=== PATIENT | male | born 1960 | race Caucasian/White ===

== ENCOUNTER 2023-06-03 07:58 | Outpatient (AMB) | payer OTHER, SELFPAY ==
--- NOTE | 2023-06-03 08:03 | MHC.OFFVIS ---
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 - LVM Intake Note: Pt presents to the office for a new pt evaluation for dizzy spells. He is here at the recommendation of his grain mill products inspector. He reports he had a full cardiac work up that was WNL. He states if he is in a resting position and gets up he feels light headed. They have been infrequent episodes, but enough to raise concern. Metallographer Required: No Allergies No Known Allergies Allergy (Verified 06/03/23 08:03) Medication List - Last Reconciled 06/03/23 by Dinorah Rodrigues MD docusate sodium (Colace) 100 mg PO DAILY famotidine 20 mg PO DAILY hydrocortisone 1% (Cortisone (hydrocortisone)) 1 appl topical BID PRN lorazepam 0.5 mg PO DAILY PRN midodrine 5 mg PO TID multivitamin 1 tab PO DAILY wheat dextrin (Benefiber Sugar Free (dextrin)) 1.5 grams PO TID HPI HPI Comments History of Present Illness Details 62y/o male comes for evaluation of possible parkinsons. He has been having episodes of lightheadedness, palpitations for past 3-4 years.It usually happens when he stands up from a sitting position and goes up the stairs or some sort of exertion. The episodes are infrequent - can have 4-5 times over 3 days in 1 month.He denies headaches with these episodes. He used to have frequent headaches in the past . When he has these episode she feels like he has to stop what he is doing or he will pass out. No epsiodes of passing out. He sees cardiology- had stress test, Holter, echo etc.He was started on Midodrine 5 mg tid 1 week ago by his grain mill products inspector. Patient is very active , is a triathlete . He is still able to exercise. He drinks 2 quarts of water,gatorade etc. He also has constipation - for many years. No loss of sense of smell. He has abnormal behavior in sleep- acting out his dreams.He has loud snoring. No drooling, feels his voice is hoarse. No double vision, no vertigo, no change in handwriting.No tremors , no gait issues. [facility] Medical History (Updated 06/03/23 @ 14:35 by Dinorah Rodrigues MD) Snoring Orthostatic hypotension Reflux esophagitis GERD (gastroesophageal reflux disease) Allergic rhinitis Surgical History (Updated 06/03/23 @ 08:05 by Cecilia Guadarrama CMA) S/P ligament repair Family History (Updated 06/03/23 @ 08:15 by Cecilia Guadarrama CMA) Father No problems noted. Mother No problems noted. Sister Intestinal adhesions Brother Anxiety Social History (Updated 06/03/23 @ 08:16 by Cecilia Guadarrama CMA) Household Members: Spouse Housing: House Alcohol intake: current Patient Tobacco Use Status: Never used Tobacco Physical Exam Vital Signs: Last Vital Signs Pulse 62 06/03/23 09:13 Resp 15 06/03/23 08:06 BP 110/82 06/03/23 09:13 Pulse Ox 97 06/03/23 08:06 Oxygen Delivery Method Room Air 06/03/23 08:06 BMI result Body Mass Index 29.4 Const General: cooperative, healthy appearing and comfortable Nutritional Appearance: average body habitus Orientation/consciousness: patient oriented x3 Eyes Pupils: Equal, round and reactive pupils present Neuro Other: Mild decreased facial expression and blink Mild hoarseness of voic e Left UE mild decreased FFM General: patient oriented x3, gait normal, tone normal and moves all extremities Cranial nerves: Yes Facial sensation intact/muscles of mastication intact, Yes Equal, round and reactive pupils present, Yes Bilaterally intact EOM present, Yes Nystagmus not present and Yes Normal facial strength present Cognition (Neuro): normal cognition Gait exam (Neuro): Normal gait present Deep tendon reflexes (DTR's): Right triceps reflex intensity grade: 1+, Left triceps reflex intensity grade: 1+, Rt Biceps (C5, C6): 1+, Left biceps reflex intensity grade: 1+, Right brachioradialis reflex intensity grade: 1+, Left brachioradialis reflex intensity grade: 1+, Right patellar reflex intensity grade: 1+ and Left patellar reflex intensity grade: 1+ Coordination: [id number] test normal Assessment & Plan Assessment & Plan (1) Orthostatic hypotension: Comment: h/o REM BEHVAIOR DISORDER , constipation ? MSA Code(s): I95.1 - Orthostatic hypotension Plan continue midodrine 5m tid Increase fluid intake Patient declined sleep study or MRI this time. Coding Level of Care Code New Pt Level 4 (34577) Diagnoses Orthostatic hypotension I95.1
[2023-06-03 08:06] VITALS: BP 118/78; PULSE 59; RESP 15; O2SAT 97; BMI 29.4
[2023-06-03 09:11] VITALS: PULSE 60
[2023-06-03 09:12] VITALS: BP 102/78; BP 106/82; PULSE 58; PULSE 62
[2023-06-03 09:13] VITALS: BP 106/80; BP 110/82; BP 110/84; PULSE 57; PULSE 58; PULSE 62
== END 2023-06-03 09:27 | disposition home or self-care (01) ==
PROVIDERS: PCP Nurse Practitioner Family; Visit Provider Psychiatry & Neurology Neurology
DX: I95.1 Orthostatic hypotension (principal)
CPT/HCPCS: 99204

== ENCOUNTER → 2023-06-03 07:58 | Outpatient (BNVA) | payer OTHER, SELFPAY | PROVIDERS: PCP Nurse Practitioner Family; Visit Provider Psychiatry & Neurology Neurology ==

== ENCOUNTER 2023-12-01 07:24 | Outpatient (AMB) | payer OTHER, SELFPAY ==
--- NOTE | 2023-12-01 07:28 | A.OFFVIS_ITS ---
Vital Signs 12/01/23 07:29 Height 5 ft 11 in Weight 211 lb 8 oz BMI 29.5 BP 112/68 Blood Pressure Location Rt brachial Position Sitting Respiration 16 Pulse 87 Pulse Source Pulse Oximeter Pulse Oximetry (%) 97 Oxygen Delivery Method Room Air Intake Visit Reasons: 6 mo f/u - Orthostatic Hyp TN/ Parkinson-CONF Intake Note: Pt presents tot he office for a 6 month follow up for orthostatic hypotension. 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 He stopped dairy, coffee which helped his irritable bowel. He describes an episode of losing some vision- he was staring at a lock pad with numbers and he could not see some numbers associated with headaches lasting 10 minutes.He has had 3 episodes so far. He has h/o migraines but have been stable for many years. The vision change lasts 10 minutes but headaches can linger for few hrs. He has been having episodes of lightheadedness, palpitations for past 3-4 years.It usually happens when he stands up from a sitting position and goes up the stairs or some sort of exertion. The episodes are infrequent - can have 4-5 times over 3 days in 1 month.He denies headaches with these episodes. He used to have frequent headaches in the past . When he has these episode she feels like he has to stop what he is doing or he will pass out. No episodes of passing out. He sees cardiology- had stress test, Holter, echo etc.He was started on Midodrine 5 mg tid 1 week ago by his telephone solicitor supervisor. Patient is very active , is a triathlete . He is still able to exercise. He drinks 2 quarts of water,gatorade etc. He also has constipation - for many years. No loss of sense of smell. He has abnormal behavior in sleep- acting out his dreams.He has loud snoring. No drooling, feels his voice is hoarse. No double vision, no vertigo, no change in handwriting.No tremors , no gait issues. [facility] Medical History (Updated 12/01/23 @ 08:00 by Dinorah Rodrigues MD) Migraine Snoring Orthostatic hypotension Reflux esophagitis GERD (gastroesophageal reflux disease) Allergic rhinitis Surgical History S/P ligament repair Family History Father No problems noted. Mother No problems noted. Sister Intestinal adhesions Brother Anxiety Social History Household Members: Spouse Housing: House Alcohol intake: current Patient Tobacco Use Status: Never used Tobacco Physical Exam Vital Signs: Last Vital Signs Pulse 87 12/01/23 07:29 Resp 16 12/01/23 07:29 BP 112/68 12/01/23 07:29 Pulse Ox 97 12/01/23 07:29 Oxygen Delivery Method Room Air 12/01/23 07:29 BMI result Body Mass Index 29.5 Const General: cooperative, healthy appearing and comfortable Nutritional Appearance: average body habitus Orientation/consciousness: patient oriented x3 Eyes Pupils: Equal, round and reactive pupils present Neuro Other: Mild decreased facial expression and blink Mild hoarseness of voic e Left UE mild decreased FFM General: patient oriented x3, gait normal, tone normal and moves all extremities Cranial nerves: Yes Facial sensation intact/muscles of mastication intact, Yes Equal, round and reactive pupils present, Yes Bilaterally intact EOM present, Yes Nystagmus not present and Yes Normal facial strength present Cognition (Neuro): normal cognition Gait exam (Neuro): Normal gait present Coordination: [id number] test normal Assessment & Plan Assessment & Plan (1) Orthostatic hypotension: Comment: h/o REM BEHVAIOR DISORDER , constipation ? MSA Code(s): I95.1 - Orthostatic hypotension Category: Medical (2) Migraine: Code(s): G43.909 - Migraine, unspecified, not intractable, without status migrainosus Category: Medical Qualifiers: Migraine type: migraine (< 15 days per month) with aura Intractability: not intractable Plan continue midodrine 5mg tid Increase fluid intake Patient declined sleep study, MRI this time. suggested magnesium 250-400 mg qhs Coding Level of Care Code Est Pt Level 4 (52796) Diagnoses Orthostatic hypotension I95.1 Migraine G43.909 Migraine type: migraine (< 15 days per month) with aura Intractability: not intractable
[2023-12-01 07:29] VITALS: BP 112/68; PULSE 87; RESP 16; O2SAT 97; BMI 29.5
== END 2023-12-01 08:04 | disposition home or self-care (01) ==
PROVIDERS: PCP Nurse Practitioner Family; Visit Provider Psychiatry & Neurology Neurology
DX: I95.1 Orthostatic hypotension (principal); G43.909 Migraine, unspecified, not intractable, without status migrainosus
CPT/HCPCS: 99214

== ENCOUNTER → 2023-12-01 07:24 | Outpatient (BNVA) | payer OTHER, SELFPAY | PROVIDERS: PCP Nurse Practitioner Family; Visit Provider Psychiatry & Neurology Neurology ==

== ENCOUNTER 2024-12-01 07:27 | Outpatient (AMB) | payer OTHER, SELFPAY ==
--- OUTSIDE RECORDS SUMMARY | 2024-12-01 07:30 | XMS_ITS | Data Portability ---
Author Organization [facility], [facility] Address [address] [place] [address] Care Team Providers Care Crib Attendant Name Role Phone DEMETRIUS HAAS Director Network Development [phone] BASIL MARTINEZ Digital Marketer KIERA PATEL Primary Care Provider Assessment Encounter Date Assessment Date Assessment LastModified by Organization Details LastModified Time 12/26/2023 12/26/2023 see if tx ak or biopsy [email or web address] 1 Not available 12/26/2023 16:11:03 02/05/2024 02/05/2024 RTC 1-2 yr CEE or prn [email or web address] Not available 02/05/2024 08:54:41 09/08/2024 09/08/2024 General Health Maintenance Active lifestyle with cycling, swimming, and running. Gluten-free diet for digestive comfort. Takes multivitamin with vitamin D. - Continue current exercise regimen and gluten-free diet. - Ensure adequate vitamin D intake through multivitamin. [email or web address] Not available 09/09/2024 08:05:16 Plan of Treatment Reminders Order Date Submit Date Provider Last Modified By Organization Details Last Modified Time Details Appointments LAB Follow -Up 2024 07:30A M [facility] Lab Not available Not available Not available Clarissa ss Visit 30 2024 09:00A M JOSE C ARELLANO-BC Not available Not available Not available Eileen hensiv e Eye Exam, 20 Min 2024 08:10A M Shaylee Haas, OD Not available Not available Not available Lab BMP, serum or plasma 2023 024 [facility], [address] [place] [address], [id number], 11/15/2024 16:03:28 biliru bin fracti ons panel, QN, serum or plasma 2023 024 [facility], [address] [place] [address], [id number], 11/15/2024 16:03:28 hepati c functi on panel, serum 2023 024 [facility], [address] [place] [address], [id number], 11/15/2024 16:03:28 HbA1c (hemog lobin A1c), blood 2023 024 [facility], [address] [place] [address], [id number], 11/15/2024 16:03:28 Referral physic al therap ist referr al 2024 025 [facility], [address], [place], [address], 09/09/2024 07:38:32 physic al therap ist referr al - right side sciati ca 2023 024 [facility], [address], [place], [address], 01/05/2024 15:35:10 Procedures None record ed. Surgeries None record ed. Imaging XR, lumbar spine 2024 025 [facility] ([facility]), [address], [place], [id number], 09/10/2024 08:48:10 Medication Orders cyclob enzapr ine 10 mg tablet 2024 025 [place] Myriam [address] ([facility] 827), [address] [place], [place], [id number], 09/08/2024 15:31:17 silden afil 50 mg tablet 2023 024 DANIA Miguel [id number] ([facility]), [address] , [place], [id number], 06/29/2024 16:42:56 Patient TargetsNo targets recorded. Patient Instructions Encounter Date Encounter Id Patient Instructions Last Modified By Organization Details Last Modified Time 12/26/2023 [id number] diet - low fodmap dchastains tul Not available 12/26/2023 15:51:45 learning about the low fodmap diet for irritable bowel syndrome (IBS) [email or web address] Not available 12/26/2023 15:51:45 01/02/2024 [id number] sciatica: exercises [email or web address] Not available 01/02/2024 16:52:51 Reason for Referral Physical Therapist Referral for Sciatica right side sciatica Referring Physician: Kiera Patel, Family Medicine, Encounter Date: 01/02/2024 Physical Therapist Referral for Low back pain LBP with paraspinal hypertonicity. Eval, assist with stretching for Low Back. Referring Physician: Antelmo Davis, Family Medicine, Encounter Date: 09/08/2024 Results Created Date Observation Date Name Description Value Unit Range Abnormal Flag Note LastModifiedBy Organization Detail LastModifiedTime 05/21/20 24 05/21/2024 trans -thor acic echoc ardio gram (TTE) (PROC ) No observ ation record ed. [email or web address] 1 [facility] [address], [place], [address], 05/21/2024 18:57:35 09/10/19 25 09/09/2024 XR, lumba r spine CLINIC AL HISTOR Y: Low back pain, right- sided. TECHNI QUE: AP, latera l and latera l spot views of the lumbar spine obtain ed. COMPAR WILBERT: None. FINDIN GS: Verteb ral body alignm ent is within physio logic limits . There is no signif icant degene rative change . There is a mild superi or endpla te compre ssion fractu re deform ity of L1. There is less than 50% loss of height . The sacroi liac joints are unrema rkable . IMPRES JACLYN: 1. No signif icant degene rative change . 2. Mild L1 compre ssion fractu re deform ity as above. Readin g Physic julia: Shruti Barker ms [facility]) [address] , [place], [address], 10/13/2024 11:08:33 Result Notes None recorded. Problems Name Problem SNOMED Code Status Onset Date Resolution Date Notes Provider Name and Address Organization Details Recorded Time Muscle, ligament and fascia disorders 679858350 Completed 01/05/2016 Kiera Randolph MD [address] [place] [address], [phone] , [facility] 6 16:30:31 Pain of hip region 49091780 Completed 01/05/2016 Kiera Randolph MD [address] [place] [address], [address] , [facility] 6 16:30:46 Headache 15581367 Completed 01/05/2016 Kiera Randolph MD [address] [place] [address], [address] , [facility] 6 16:30:40 Benign essential hypertensi on 9596551 Completed 201504/06/2018 Kiera Randolph MD [address] [place] [address], [address] , [facility] 8 09:17:04 Acid reflux 508707493 Active 2018 Not Available [facility] 3 12:05:31 Orthostati c hypotensio n 64661965 Active 2022 Not Available [facility] 3 12:05:31 Hemorrhoid s 94175831 Active 2022 Not Available [facility] 3 12:05:31 Compressio n fracture of lumbar spine 168340034 Active 2023September 2022 K[address] EDMONDS [address], [address] , [facility] 4 10:27:37 Dilatation of aorta 23506925 Active 2023 3.9cm oct 24 KIERA EDMONDS [address], [address] , [facility] 4 18:57:25 Sciatica 87495392 Active 2023 KIERA EDMONDS [address], [address] , [facility] 4 07:14:12 Actinic keratosis 840428804 Active 2023 KIERA EDMONDS [address], [address] , [facility] 4 17:28:42 Hyperbilir ubinemia 37488037 Active 2023 KIERA EDMONDS [address], [address] , [facility] 4 17:34:44 Presbyopia 12093103 Completed 200504/13/2012 Not Available [facility] 3 03:04:39 Precordial pain 28471188 Completed 200304/13/2012 Not Available [facility] 3 03:04:39 Disorder of bursa of shoulder region 33296949 Completed 200606/16/2013 Not Available [facility] 3 02:04:09 Palpitatio ns 22840179 Completed 200304/13/2012 Not Available [facility] 3 03:04:39 Temporoman dibular joint disorder 58941423 Completed 200204/26/2012 Not Available [facility] 3 03:04:39 Pain of shoulder region 08248700 Completed 200704/13/2012 Not Available [facility] 3 03:04:39 Astigmatis m 35389516 Completed 200504/13/2012 [facility] Available [facility] 3 03:04:39 Myopia 48892252 Completed 200504/13/2012 Not Available [facility] 3 03:04:39 Neck pain 62555766 Completed 200004/26/2012 Not Available [facility] 3 03:04:39 Plantar fasciitis 111834246 Completed 200204/13/2012 Not Available [facility] 3 03:04:39 Disorder of skin and/or subcutaneo us tissue 59964397 Completed 04/13/2012 Not Available [facility] 3 03:04:39 Cellulitis and abscess of toe 961949231 Completed 200604/13/2012 Not Available [facility] 3 03:04:39 Finding by method 928702947 Completed 200304/13/2012 Not Available [facility] 3 03:04:39 Breathing painful 67488702 Completed 200304/13/2012 Not Available [facility] 3 03:04:39 Common cold 66825821 Completed 200204/13/2012 Not Available [facility] 3 03:04:39 Knee pain Completed 04/13/2012 Not Available [facility] 3 03:04:39 Pain of joint 50483775 Completed 200004/13/2012 Not Available [facility] 3 03:04:39 Sprain of shoulder and upper arm Completed 200104/13/2012 Not Available [facility] 3 03:04:39 Allergic rhinitis caused by pollen 67090420 Active 2004 Not Available [facility] 3 12:05:30 Open wound of forearm 717348458 Completed 04/13/2012 Not Available [facility] 3 03:04:39 Chest pain 38465765 Completed 200304/13/2012 Not Available [facility] 3 03:04:39 Brachial neuritis 14729755 Completed 200706/16/2013 Not Available [facility] 3 02:03:14 Abnormal weight gain 878069290 Completed 200204/13/2012 Not Available [facility] 3 03:04:39 Acute maxillary sinusitis 59929044 Completed 200204/13/2012 Not Available [facility] 3 03:04:39 Low back pain 501820546 Active 2004 Not Available [facility] 3 12:05:31 Pain of wrist region 19314389 Completed 200004/13/2012 Not Available [facility] 3 03:04:39 Pain in limb 18569622 Completed 200304/13/2012 Not Available [facility] 3 03:04:39 Viral upper respirator y tract infection 644245392 Completed 199904/13/2012 Not Available [facility] 3 03:04:39 Problem Notes None recorded. Procedures Surgical History Date Name Laterality Status Provider Name and Address Organization Details Recorded Time 02/05/20 24 Refraction completed Shaylee Haas, OD [address] [place], [address], [facility] 02/05/2024 08:54:25 07/16/20 22 [address]: Therapeutic Exercise completed Cristal Benitez, PT [address] [place], [address], [facility] 07/16/2022 15:31:49 07/16/20 22 Treatment and Advice completed Cristal Benitez, PT [address] [place], [address], [facility] 07/16/2022 15:30:22 07/02/20 22 Physical Activity Counselling completed Cristal Benitez, PT [address] [place], [address], [facility] 07/02/2022 17:23:06 07/02/20 22 14092: PT Eval Low Complexity completed Cristal Benitez, PT [address] [place], [address], [facility] 07/02/2022 17:23:03 07/02/20 22 Treatment and Advice completed Cristal Benitez, PT [address] [place], [address], [facility] 07/02/2022 17:23:33 09/11/19 22 Shave Biopsy completed Chelly pacheco PA-C [address] [place], [address], [facility] 09/11/2021 09:32:14 06/14/20 21 Refraction completed Sarah Mckeon [facility] 06/08/2021 09:44:15 06/05/20 20 prevention-cardio vascular risk reduction counseling completed Shannon Sanders [facility] 06/05/2020 15:16:46 06/05/20 20 prevention-annual alcohol misuse screening completed Shannon Sanders [place] [facility] 06/05/2020 15:16:46 09/21/19 20 Refraction completed Elizabeth Beckman [facility] 09/16/2019 13:08:07 03/28/20 17 Visual field comprehensive completed Nasir Douglas, OD [address] [place], [address], [facility] 03/28/2017 10:22:36 06/28/20 15 Refraction completed Nasir Douglas, OD [address] [place], [address], [facility] 06/28/2015 08:30:06 04/06/20 13 Treatment and Advice completed Cristal Benitez, PT [address] [place], [address], [facility] 04/06/2013 08:04:46 03/11/20 13 Treatment and Advice completed Cristal Benitez, PT [address] [place], [address], [facility] 03/11/2013 10:31:57 11/05/19 12 Wound Care completed Sun Guillermo LPN [facility] 11/05/2011 11:45:56 02/01/20 11 Treatment and Advice completed Cristal Benitez, PT [address] [place], [address], [facility] 01/31/2011 07:34:45 01/11/20 11 Treatment and Advice completed Cristal Benitez, PT [address] [place], [address], [facility] 01/10/2011 08:22:12 12/28/19 11 Treatment and Advice completed Cristal Benitez, PT [address] [place], [address], [facility] 12/27/2010 08:24:11 12/19/19 11 Treatment and Advice completed Cristal Benitez, PT [address] [place], [address], [facility] 12/18/2010 09:07:10 02/21/20 10 Treatment and Advice completed Cristal Benitez, PT [address] [place], [address], [facility] 02/20/2010 08:02:39 01/31/20 10 Treatment and Advice completed Cristal Benitez, PT [address] [place], [address], [facility] 01/30/2010 08:32:52 01/24/20 10 Treatment and Advice completed Cristal Benitez, PT [address] [place], [address], [facility] 01/23/2010 07:28:07 01/16/20 10 Treatment and Advice completed Cristal Benitez, PT [address] [place], [address], [facility] 01/15/2010 08:09:25 01/07/20 09 Treatment and Advice completed Basil Vega, PT [address] [place], [address], [facility] 01/06/2009 09:04:00 12/08/19 09 Treatment and Advice completed Basil Vega, PT [address] [place], [address], [facility] 12/07/2008 08:05:35 Imaging Results Imaging Date Name Status LastModified by Organization Details LastModified Time 05/21/2024 trans-thoracic echocardiogram (TTE) (PROC) completed [email or web address] 1 [facility] [address], [place], [address], 05/21/2024 18:57:35 09/09/2024 XR, lumbar spine completed [facility] ([facility]) [address], [place], [address], 10/13/2024 11:08:33 Procedure Notes None recorded. Medical Equipment None Reported. Allergies Allergen ID Allergen Name Allergen Category Reaction Reaction Severity Criticality Documentation Date Start Date Code Code System Note Provider Name and Address Organization Details Recorded Time 149657 banana extract food,medi cation abdominal pain moderate Not available 05/19/2019 05209 9 RxNorm Nasima justice [facility] 9 08:22:12 538490 pineapple extract food abdominal pain moderate Not available 05/19/2019 10135 74 RxNorm Nasima justice [facility] 9 08:22:27 580286 apple extract food abdominal pain moderate Not available 05/19/2019 76672 65 RxNorm red apple s Nasima Scott [facility] 9 08:22:52 Medications Name Sig Start Date Stop Date Status Note LastModified by Organization Details LastModified Time amoxicill in 500 mg caps 12/29 completed Not Available Not Available Not Available cimetidin e 400 mg tabs Takes one QD 01/05/20 PP 01/04 completed Not Available Not Available Not Available ranitidin e hydrochlo ride 150 mg tabs 11/16 completed Ranitidi ne Recall, pt states not taking Not Available Not Available Not Available cyclobenz aprine 10 mg tablet Take 1 tablet 3 times a day by oral route as needed for 21 days. active Not Available Not Available No t Available sildenafi l 50 mg tablet Take 0.5 tablets every day by oral route as needed for 14 days. active Not Available Not Available No t Available cimetidin e 400 mg tablet TAKE 1 TABLET BY MOUTH TWICE DAILY 05/19 completed Not Available Not Available Not Available Keflex 500 mg capsule Take 1 capsule every 6 hours by oral route for 7 days. 01/13 completed Not Available Not Available Not Available midodrine 5 mg tablet One Tablet TID active Not Available Not Available No t Available Flonase 50 mcg/actua tion nasal spray,sarah pension [place] 1 spray twice a day by intranas al route. 2010 active Not Available Not Available Not Avai lable sulfameth oxazole 800 mg-trimet hoprim 160 mg tablet Take 1 tablet every 12 hours by oral route for 7 days. 02/24 completed Not Available Not Available Not Available amoxicill in 500 mg tablet 1 PO TID X 10D 2011 active Not Available Not Available Not Avai lable cyprohept adine 4 mg tablet 06/02 completed Not Available Not Available Not Available hydrocort isone 2.5 % topical cream with perineal applicato r 12/25 completed Not Available Not Available Not Available famotidin e 20 mg tablet Take 1 tablet every day by oral route as needed. active daily Not Available Not Available No t Available lorazepam 0.5 mg tablet Take 1-2 tablets (as needed for flying) active Not Available Not Available No t Available amitripty line 10 mg tablet 12/25 completed Not Available Not Available Not Available Proctofoa m HC 1 %-1 % 12/25 completed Not Available Not Available Not Available nystatin 100,000 unit/gram topical cream APPLY TO THE AFFECTED AREA(S) BY TOPICAL ROUTE 2 TIMES PER DAY 12/25 completed Stopped today 02/12/23 AAS Not Available Not Available Not Available ranitidin e 150 mg tablet TAKE 1 TABLET BY MOUTH TWICE DAILY 05/19 completed Not Available Not Available Not Available hyoscyami ne 0.125 mg sublingua l tablet 12/25 completed Not Available Not Available Not Available lidocaine 5 % topical patch APPLY 1 PATCH BY TOPICAL ROUTE ONCE DAILY (MAY WEAR UP TO 12HOURS. ) active Not using 06/29/24 PP Not Available Not Available Not Available docusate sodium 100 mg capsule TAKE 2 CAPSULES BY MOUTH EVERY DAY DIRECTED 2024 active Not Available Not Available Not Avai lable omeprazol e 20 mg capsule,d elayed release 1 cap BID 11/16 completed spoke with ptDarwin Tateitiyoko stafford Recall and states no longer taking omeprazo le Not Available Not Available Not Available mupirocin 2 % topical ointment APPLY A SMALL AMOUNT TO THE AFFECTED AREA BY TOPICAL ROUTE 3 TIMES PER DAY 02/24 completed Not Available Not Available Not Available Maxitrol 3.5 mg/mL-10, 000 unit/mL-0 .1% eye drops,sarah pension Instill 1 drop every 3 hours by ophthalm ic route. 2011 active Not Available Not Available Not Avai lable ketoconaz ole 2 % topical cream APPLY TO THE AFFECTED AREA(S) BY TOPICAL ROUTE ONCE DAILY 12/25 completed Not Available Not Available Not Available rosuvasta tin 5 mg tablet Take one daily active Not Available Not Available No t Available famotidin e 12/29 completed Not Available Not Available Not Available multivita min take one tab daily 11/22 completed Not Available Not Available Not Available omega-3 fatty acids-fis h oil 300 mg-1,000 mg capsule,d elayed release 11/22 completed Take 1.00 caps daily Not Available Not Available Not Available Probiotic 100 billion cell capsule Take 1 capsule every day by oral route for 30 days. 02/24 completed Not Available Not Available Not Available Shingrix (PF) 50 mcg/0.5 mL intramusc ular suspensio n, kit 08/28 completed Not Available Not Available Not Available Fluzone Quad (PF) 60 mcg (15 mcg x 4)/0.5 mL IM syringe PHARMACY ADMINIST ERED 08/28 completed Not Available Not Available Not Available Vitals Date Recorded Body height Body mass index (BMI) Body weight Heart rate Oxygen saturation Oxygen saturation in Arterial blood by Pulse oximetry Systolic blood pressure Diastolic blood pressure Provider Name and Address Organization Details Last Updated DateTime 4 179.07 cm 29.7 kg/m2 04360.4 g 59 /min 97 % 97 % 106 mm[Hg] 74 mm[Hg] JANET Cuba [facility] 4 15:39:25 Date Recorded Body height Body mass index (BMI) Body weight Heart rate Systolic blood pressure Diastolic blood pressure Provider Name and Address Organization Details Last Updated DateTime 4 179.07 cm 29.7 kg/m2 57852.4 g 56 /min 114 mm[Hg] 78 mm[Hg] Kiera Beyer, [facility] 4 16:33:52 Date Recorded Body height Body mass index (BMI) Body weight Heart rate Oxygen saturation Oxygen saturation in Arterial blood by Pulse oximetry Systolic blood pressure Diastolic blood pressure Provider Name and Address Organization Details Last Updated DateTime 4 179.07 cm 30 kg/m2 41724.5 8 g 56 /min 98 % 98 % 120 mm[Hg] 80 mm[Hg] [facility] 16:12:41 Date Recorded Body height Heart rate Oxygen saturation Oxygen saturation in Arterial blood by Pulse oximetry Systolic blood pressure Diastolic blood pressure Provider Name and Address Organization Details Last Updated DateTime 5 179.07 cm 70 /min 99 % 99 % 90 mm[Hg] 56 mm[Hg] [facility] 5 15:13:48 Social History Question Answer Notes LastModified by Organizat ion Details LastModified Time Tobacco Smoking Status Never Smoker Not Available [email or web address] 06/13/2011 04:53:18 Do You Have An Advance Directive? No [email or web address] Information not available 06/13/2011 What Is Your Level Of Alcohol Consumption? Occasional 1 Drink A Week Information not available 08/28/2021 Do You Wear A Helmet When Biking? Yes Information not available 09/09/2014 What Is Your Level Of Caffeine Consumption? Occasional Information not available 06/29/2024 How Much Tobacco Do You Chew? None [email or web address] Information not available 06/13/2011 Are You Currently Employed? Yes Information not available 12/18/2022 What Type Of Diet Are You Following? REGULAR Less Meat. No Dairy. Information not available 12/26/2023 Which Illicit Or Recreational Drugs Have You Used? No Information not available 01/05/2020 Do You Or Have You Ever Used E-cigarettes Or Vape? 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 No Information not available 12/18/2022 Are There Any Guns Present In Your Home? No [email or web address] Information not available 06/13/2011 Do You Use Insect Repellent Routinely? Yes Information not available 08/28/2021 Live Alone Or With Others? With Others Information not available 06/05/2020 CSRP - Narcotics No Information not available 09/09/2014 CSRP Contract Signed And Discussed No Information not available 09/09/2014 Patient Has Health Care Proxy Signed And In Chart No Has It Completed, Will Bring It 08/28/21MS [email or web address] Information not available 06/13/2011 CSRP - Stimulants No Information not available 09/09/2014 CSRP - Suboxone No Informati on not available 01/05/2016 Marital Status Information not available 06/13/2011 Mosquito Repellent Used Routinely Yes [email or web address] Information not available 06/13/2011 What Was The Date Of Your Most Recent Tobacco Screening? 09/08/2024 Information not available 09/08/2024 How Many Children Do You Have? 2 Daughters In College [email or web address] Information not available 04/26/2012 What Is Your Relationship Status? Information not available 12/26/2023 Do You Use Your Seat Belt Or Car Seat Routinely? Yes Information not available 08/28/2021 Seat Belts Used Routinely Yes [email or web address] Information not available 06/13/2011 Smoke Alarm In Home Yes [email or web address] Information not available 06/13/2011 Do You Have Smoke And Carbon Monoxide Detectors In Your Home? Yes Information not available 08/28/2021 Are You Passively Exposed To Smoke? No Information not available 08/28/2021 Do You Or Have You Ever Used Smokeless Tobacco? Never Used Smokeless Tobacco [email or web address] Information not available 12/30/2019 How Much Tobacco Do You Smoke? No Information not available 06/29/2015 General Stress Level Low Information not available 06/05/2020 Do You Use Any Illicit Or Recreational Drugs? No Information not available 08/28/2021 Do You Use Sunscreen Routinely? Yes [email or web address] Information not available 06/13/2011 How Many Years Have You Smoked Tobacco? 0 [email or web address] Information not available 06/27/2020 Do You Or Have You Ever Used Any Other Forms Of Tobacco Or Nicotine? No Information not available 08/28/2021 How Many Days In The Past Year Have You Consumed 5 Or More Drinks? 0 [email or web address] Information not available 08/28/2021 Sex: Male Functional Status Question Answer Note LastModified by Organizat ion Details LastModified Time What is your exercise level? Moderate daily run, bike, swim sometimes Information not available 12/18/2022 Mental Status None recorded. Family History Relationship Description Onset Age of this Age Resolved Age Notes LastModified by Organization Details LastModified Time Father Polyp of colon [email or web address] Not available 2012 19:55:09 Notes:father - d 79 pneumoni a; hx palpitations, on meds, prostate issues, colon polyps; mother - 96; well. Medical History No medical history recorded. Immunizations Vaccine Type Date Status Note Provider Nam e and Address Organization Details Recorded Time Influenza, split virus, trivalent, preservative 1 completed Not Available [facility]14[facility]2019 02:18:11 Td(adult) unspecified formulation 6 completed Not Available [facility] 06/12/2011 05:21:29 Influenza, split virus, trivalent, preservative 2 completed Not Available [facility] 08/14/2019 02:18:35 Influenza, split virus, trivalent, PF 3 completed Not Available [facility] 08/14/2019 02:18:57 Influenza, split virus, trivalent, preservative 0 completed Not Available [facility] 08/14/2019 02:35:38 Novel [id number] 0 completed Not Available [facility] 08/14/2019 02:33:03 Influenza, split virus, trivalent, PF 4 completed Not Available [facility] 08/14/2019 02:19:23 Td(adult) unspecified formulation 2 completed [facility] 15:09:17 Influenza, split virus, quadrivalent, PF 5 completed Not Available [facility] 08/14/2019 02:20:11 Influenza, split virus, quadrivalent, PF 7 completed Not Available [facility] 08/14/2019 02:22:06 Influenza, split virus, quadrivalent, PF 8 completed Not Available [facility] 08/14/2019 02:22:58 Influenza, split virus, quadrivalent, preservative 0 completed Not Available [facility] 05/18/2020 10:39:59 Td (adult), 2 Lf tetanus toxoid, preservative free, adsorbed 2 completed Ankita Velez [address], [address], [facility] 08/28/2021 11:22:16 zoster recombinant 0 completed Celia Woods MA null, [facility] 05/10/2024 09:03:21 COVID-19, mRNA, LNP-S, bivalent, PF, 50 mcg/0.5 mL or 25mcg/0.25 mL dose 3 completed Ankita Velez [address], [address], [facility] 12/18/2022 20:45:43 Influenza, split virus, trivalent, preservative 0 completed Not Available [facility] 08/14/2019 02:17:48 COVID-19, mRNA, LNP-S, PF, 30 mcg/0.3 mL dose 1 completed JANET Ann, [facility] 08/28/2021 11:00:55 COVID-19, mRNA, LNP-S, PF, 30 mcg/0.3 mL dose 1 completed JANET Ann, [facility] 08/28/2021 11:01:18 COVID-19, mRNA, LNP-S, PF, 30 mcg/0.3 mL dose 1 completed JANET Ann null, [facility] 08/28/2021 11:01:41 Influenza, split virus, quadrivalent, preservative 1 completed JANET Ann null, [facility] 08/28/2021 11:02:19 Influenza, split virus, quadrivalent, preservative 2 completed Eliza justice, [facility] 04/25/2022 09:24:01 COVID-19, mRNA, LNP-S, PF, 30 mcg/0.3 mL dose 2 completed Eliza justice, [facility] 06/03/2022 12:21:39 zoster recombinant 0 completed Kaley Aguilar RN null, [facility] 10/19/2022 11:12:19 zoster recombinant 0 completed Kaley Aguilar RN null, [facility] 10/19/2022 11:12:38 influenza, unspecified formulation 2 completed Kaley Aguilar RN null, [facility] 10/19/2022 11:13:35 COVID-19 mRNA, bivalent, original/Omicron BA.1, Non-US Vaccine (Spikevax Bivalent), Moderna 3 [facility] 15:47:20 influenza, unspecified formulation 3 [facility] 04/28/2023 15:47:37 Influenza, MDCK, trivalent, preservative 4 [facility] 05/10/2024 09:03:38 Past Encounters Encounter ID Performer Location Encounter Start Date Encounter Closed Date Diagnosis/Indication Diagnosis SNOMED-CT Code Diagnosis ICD10 Code Diagnosis Note [id number] BAIRON Fajardo , [facility], OFFICE [address] [place] [address] 07/23/2000 11:30:00 08/17/2008 02:02:29 [id number] [facility] , [address] [place] [address] 08/28/2000 09:00:00 08/17/2008 02:02:29 [id number] [facility] , [facility] [address] [place] [address] 08/28/2000 00:00:00 08/17/2008 02:02:29 [id number] Kiera Randolph MD , [facility], OFFICE [address] [place] [address] 08/28/2000 08:30:00 08/17/2008 02:02:29 [id number] Ed Crowder. , [facility], OFFICE [address] [place] [address] 04/06/2002 10:42:44 08/17/2008 02:02:29 [id number] Kiera Randolph MD , [facility], OFFICE [address] [place] [address] 10/22/2002 10:30:15 08/17/2008 02:02:29 [id number] Cristal juárez, PT Physical Therapy, [address] [address] 11/25/2002 08:14:45 08/17/2008 02:02:29 [id number] Cristal juárez, PT Physical Therapy, [address] [address] 6 12/03/2002 08:24:41 08/17/2008 02:02:29 [id number] Cristal juárez, PT Physical Therapy, [address] [address] 6 12/10/2002 08:34:11 08/17/2008 02:02:29 [id number] Cristal juárez, PT Physical Therapy, [address] [address] 12/14/2002 07:33:10 08/17/2008 02:02:29 [id number] Cristal juárez, PT Physical Therapy, [address] [address] 6 12/17/2002 09:05:40 08/17/2008 02:02:29 [id number] Cristal juárez, PT Physical Therapy, [address] [address] 12/23/2002 08:44:09 08/17/2008 02:02:29 [id number] MD SHARON Jean Baptiste, [facility], OFFICE [address] [place] [address] 12/21/2002 16:41:12 08/17/2008 02:02:29 [id number] Cristal ujárez, PT Physical Therapy, [address] [address] 12/29/2002 08:41:00 08/17/2008 02:02:29 [id number] [facility] - [address] [address] 12/29/2002 09:17:23 08/17/2008 02:02:29 [id number] Cristal juárez, PT Physical Therapy, [address] [address] 01/05/2003 08:09:54 08/17/2008 02:02:29 [id number] Kiera Randolph MD , [facility], [address]ICE [address] [place] [address] 02/03/2003 11:44:46 08/17/2008 02:02:29 [id number] Sierra Guallpa NP , [facility], [address] [place] [address] 07/26/2003 15:36:12 07/27/2003 08:20:49 [id number] Kiera Randolph MD , [facility], [address] [place] [address] 10/03/2003 15:55:24 10/04/2003 08:10:37 [id number] [facility] , [address] [address] 10/03/2003 16:45:17 10/03/2003 16:47:02 [id number] [facility] , [facility] [address] [place] [address] 10/03/2003 00:00:00 08/17/2008 02:02:29 [id number] Kiera Randolph MD , [facility], [address] [place] [address] 06/08/2004 14:22:09 06/11/2004 14:19:30 [id number] MD SHARON Jean Baptiste, [facility], [address] [place] [address] 07/24/2004 12:06:39 07/24/2004 17:19:37 [id number] BAIRON Fajardo , [facility], [address] [place] [address] 11/26/2004 15:34:07 11/27/2004 15:41:29 [id number] [facility] - [facility] [address] [place] [address] 04/10/2005 08:11:32 04/10/2005 08:11:38 [id number] Hosea Sanders MD , [facility], OFFICE [address] [place] [address] 04/23/2005 16:39:35 08/17/2008 02:02:29 [id number] MD SHARON Jean Baptiste, [facility], OFF[address] [place] [address] 01/06/2006 09:38:35 08/17/2008 02:02:29 [id number] Nohelia Greco, OD Eye Care, [facility] [address] [place] [address] 01/06/2006 08:49:28 08/17/2008 02:02:29 [id number] [facility] , [facility] [address] [place] [address] 01/06/2006 10:33:16 08/17/2008 02:02:29 [id number] [facility] , [facility], OFF[address] [place] [address] 06/03/2006 16:37:27 06/04/2006 08:14:47 [id number] FP TREATMENT NURSE [facility], [facility], [address] [place] [address] 06/05/2006 10:10:51 06/06/2006 09:02:50 [id number] UCHE Craroll, [facility], OFFICE [address] [place] [address] 04/10/2007 09:27:05 04/13/2007 16:13:55 [id number] UCHE Carroll, [facility], [address]ICE [address] [place] [address] 04/13/2007 10:31:08 04/17/2007 11:22:29 [id number] UCHE Carroll, [facility], [address] [place] [address] 6 04/21/2007 08:24:40 04/23/2007 11:22:17 [id number] MD SHARON Jean Baptiste, [facility], OFFICE [address] [place] [address] 07/15/2007 08:43:45 08/17/2008 02:02:29 [id number] Cristal juárez, PT Physical Therapy, [address] [address] 07/29/2007 07:29:11 07/29/2007 12:25:12 [id number] Cristal juárez, PT Physical Therapy, [address] [address] 08/05/2007 07:20:27 08/05/2007 14:07:39 [id number] Nohelia Greco, Eye Care, [address] [address] 6 10/02/2007 07:58:25 10/05/2007 11:58:48 [id number] [facility] - [facility] [address] [place] [address] 06/03/2008 15:09:38 06/03/2008 15:09:46 [id number] Kiera Randolph MD , [facility], OFFICE [address] [place] [address] 06/03/2008 13:49:34 08/17/2008 02:02:29 [id number] MD SHARON Jean Baptiste, [facility], OFF[address] [place] [address] 11/15/2008 16:26:28 11/17/2008 13:20:48 [id number] Basil Vega , PT Physical Therapy, [facility] [address] [place] [address] 11/23/2008 07:27:59 11/24/2008 07:57:00 [id number] Basil Vega , PT Physical Therapy, [address] [address] 12/07/2008 07:30:10 12/07/2008 12:16:15 [id number] Basil Vega PT Physical Therapy, [address] [address] 01/06/2009 08:29:09 01/06/2009 15:13:49 [id number] Basil Vega , PT Physical Therapy, [address] [address] 02/08/2009 07:56:16 02/08/2009 11:13:51 [id number] Basil Vega , PT Physical Therapy, [address] [address] 03/03/2009 07:35:44 03/03/2009 11:28:24 [id number] [facility], [address] [address] 05/17/2009 07:59:33 05/17/2009 11:15:53 [id number] [facility], [address] [address] 05/22/2009 10:59:30 05/22/2009 11:29:01 [id number] [facility] FP, [facility], OFFICE [address] [place] [address] 08/08/2009 08:31:35 08/08/2009 15:23:26 [id number] Kiera Randolph MD , [facility], OFFICE [address] [place] [address] 01/10/2010 10:42:59 02/06/2010 12:39:43 [id number] Cristal juárez, PT Physical Therapy, [address] [address] 01/15/2010 07:25:33 01/15/2010 10:05:23 [id number] Cristal juárez, PT Physical Therapy, [address] [address] 01/23/2010 07:26:33 01/23/2010 09:37:09 [id number] Cristal juárez, PT Physical Therapy, [address] [address] 6 01/30/2010 07:50:15 01/30/2010 08:45:06 [id number] Cristal juárez, PT Physical Therapy, [address] [address] 6 02/20/2010 07:24:26 02/20/2010 08:41:30 [id number] Cristal juárez, PT Physical Therapy, [address] [address] 6 03/19/2010 07:31:55 03/19/2010 13:43:20 [id number] UCHE De La Cruz, [facility], OFFICE [address] [place] [address] 05/18/2010 14:31:07 05/21/2010 10:36:46 [id number] MD SHARON Jean Baptiste, [facility], OFFICE [address] [place] [address] 12/12/2010 09:32:29 12/14/2010 08:59:18 [id number] Cristal juárez, PT Physical Therapy, [address] [address] 12/18/2010 08:22:48 12/18/2010 10:18:48 [id number] Cristal juárez, PT Physical Therapy, [address] [address] 6 12/27/2010 07:47:28 12/27/2010 10:10:23 [id number] Cristal juárez, PT Physical Therapy, [address] [address] 6 01/10/2011 07:24:25 01/10/2011 08:25:13 [id number] Cristal juárez, PT Physical Therapy, [address] [address] 6 01/31/2011 07:04:17 01/31/2011 07:46:09 [id number] Cristal juárez, PT Physical Therapy, [address] [address] 6 02/21/2011 07:04:51 02/21/2011 09:01:50 [id number] UCHE De La Cruz, [facility], OFFICE [address] [place] [address] 03/27/2011 08:20:50 03/27/2011 09:24:35 [id number] SHARON TREATMENT NURSE [facility] SHARON [facility], OFFICE [address] [place] [address] 03/28/2011 09:37:51 03/28/2011 10:24:00 [id number] DENA Shirley [facility], OFFICE [address] [place] [address] 6 07/05/2011 10:14:28 07/05/2011 11:36:03 [id number] [facility] Techn[facility] st Radiology , [facility] [address] [place] [address] 6 07/05/2011 11:27:33 07/10/2011 10:11:59 [id number] Kevon Vergara MD , [facility], [address] [place] [address] 08/12/2011 07:54:09 08/12/2011 08:20:47 [id number] Antelmo Escobedo MD , [facility], [address] [place] [address] 08/16/2011 16:17:04 08/20/2011 10:47:04 [id number] JOSE C Torres-BC , [facility], [address] [place] [address] 11/05/2011 10:19:56 11/05/2011 11:33:23 [id number] JOSE C Torres-BC , [facility], [address] [place] [address] 11/06/2011 10:59:14 11/06/2011 11:39:53 [id number] JOSE C Torres-BC , [facility], [address] [place] [address] 11/13/2011 08:02:13 11/13/2011 08:28:43 [id number] Sierra De Santiago MD , [facility], [address] [place] [address] 02/17/2012 13:40:01 02/17/2012 14:10:59 [id number] Kiera Randolph MD , [facility], OFFICE [address] [place] [address] 04/13/2012 14:38:28 04/13/2012 15:36:48 [id number] Kiera Randolph MD , [facility], OFFICE [address] [place] [address] 6 07/23/2012 16:22:46 07/24/2012 12:16:16 [id number] Nasir Calderon MD Radiology , [facility] [address] [place] [address] 6 07/23/2012 17:06:58 07/23/2012 17:25:53 [id number] Kiera Randolph MD FP, [facility], OFFICE [address] [place] [address] 03/03/2013 16:49:42 03/03/2013 17:28:36 [id number] Cristal juárez, PT Physical Therapy, [address] [address] 03/11/2013 09:43:45 03/11/2013 11:23:32 Muscle, ligament and fascia disorders [id number] Cristal juárez, PT Physical Therapy, [address] [address] 04/06/2013 07:25:41 04/06/2013 09:16:55 Low back pain [id number] Cristal juárez, PT Physical Therapy, [address] [address] 04/13/2013 08:54:29 04/13/2013 10:06:22 Low back pain [id number] Kalpana Hubbard NP , [facility], OFFICE [address] [place] [address] 04/13/2013 09:36:52 04/16/2013 10:25:18 Influenza vaccine needed [id number] Cristal juárez, PT Physical Therapy, [address] [address] 04/19/2013 07:57:08 04/19/2013 09:51:11 Low back pain [id number] Cristal juárez, PT Physical Therapy, [address] [address] 6 04/29/2013 07:07:17 04/29/2013 09:12:01 Low back pain 343838035 [id number] Cristal juárez, PT Physical Therapy, [address] [address] 6 05/06/2013 07:28:53 05/06/2013 09:20:00 Low back pain [id number] Cristal juráez, PT Physical Therapy, [address] [address] 6 05/20/2013 07:04:02 05/20/2013 09:47:52 Low back pain [id number] Cristal juárez, PT Physical Therapy, [facility] [address] [place] [address] 05/25/2013 07:30:28 05/25/2013 07:48:57 Low back pain [id number] Cristal juárez, PT Physical Therapy, [address] [address] 6 05/27/2013 07:07:22 05/27/2013 07:47:38 Low back pain [id number] Cristal juárez, PT Physical Therapy, [address] [address] 6 06/01/2013 07:25:26 06/01/2013 09:47:15 Low back pain [id number] Kiera Randolph MD , [facility], OFF[address] [place] [address] 07/01/2013 11:46:41 07/01/2013 13:09:39 Pain of hip region 69180218 [id number] Kalpana Hubbard NP , [facility], [address] [place] [address] 6 07/02/2014 11:43:55 07/02/2014 11:48:38 Influenza vaccine needed [id number] Kiera Randolph MD , [facility], [address] [place] [address] 09/09/2014 13:39:17 09/09/2014 14:15:23 Sprain of jaw 08131287 Strain of gastrocnemius tendon 463462583 [id number] BAIORN Dominguez , [facility], [address] [place] [address] 02/11/2015 10:14:19 02/11/2015 11:03:59 Pruritus ani 99441866 Rash of genitalia 603592352 fungal- clotriamzo le 3x/day- f/u if not resolving I coming week [id number] Kiera Randolph MD , [facility], [address] [place] [address] 02/20/2015 16:36:39 02/20/2015 17:16:48 Infection of sebaceous cyst 567535598 [id number] Nasir Douglas, [facility], [facility] [address] [place] [address] 06/28/2015 07:47:54 06/28/2015 08:32:24 Myopia 60953813 H52.13 Presbyopia 49026316 H52. 4 Headache 57789448 R51 Most likelynot eye related. Optic nerves appear flat and healthy [id number] Kalpana Hubbard NP , [facility], OFF[address] [place] [address] 06/28/2015 08:31:31 06/28/2015 09:30:35 Active or passive immunization 495772962 Z23 [id number] Kiera Randolph MD , [facility], OFF[address] [place] [address] 06/29/2015 16:35:35 06/29/2015 17:28:29 Neck pain 16207378 M54.2 [id number] Kiera Randolph MD , [facility], [address] [place] [address] 01/05/2016 15:56:55 01/08/2016 09:13:57 Adult health examination 994770701 Z00.00 see Risk Assessment and Lifestyle Change Counseling section above Counseling 942624057 Z71 .9 [id number] Kiera Randolph MD , [facility], [address] [place] [address] 6 11/22/2016 08:21:04 11/22/2016 14:19:47 Adult health examination 844701235 Z00.00 see Risk Assessment and Lifestyle Change Counseling section above Headache 47947442 R51 [id number] Nasir Douglas, OD Eye Care, [address] [address] 02/28/2017 14:18:17 02/28/2017 15:15:16 Posterior vitreous detachment 580932245 H43.811 Retina is intact 360 degrees [id number] Nasir Douglas, OD Eye Care, [facility] [address] [place] [address] 03/21/2017 08:01:34 03/21/2017 09:03:47 Vitreous floaters 75605554 H43.391 Retina intact 360 degrees Subjective visual disturbance 11978185 H53.10 OCT show normal macula in both eyes. No evidence of CSRWith history of headaches will get visual field to rule out neurologic al defect Central se bonnie chorioretinopathy 727414043 H35.711 Ruled out by OCT. [id number] Nasir Douglas, OD Eye Care, [facility] [address] [place] [address] 03/28/2017 09:49:36 03/28/2017 10:43:04 Myopia 63673696 H52.13 Visual disturbance 20226 001 H53.9 Normal visual box in each eye, normal fundus, normal MRI Presbyopia 46820143 H52. 4 [id number] Gerry Roblero MD , [facility], [address] [place] [address] 05/24/2017 11:27:03 05/24/2017 13:29:15 Active or passive immunization 371009666 Z23 [id number] Cruzito Freeman MD , [facility], [address] [place] [address] 06/02/2017 17:07:19 06/03/2017 08:37:45 Plantar heel pain 26392249 M79.672 medial aspect pain.persi stent, pending negative x-ray will refer to PT and podiatry. [id number] Kiera Randolph MD , [facility], [address] [place] [address] 06/23/2017 16:26:20 06/24/2017 07:47:37 Headache 16833079 R51 Chest pain 90711045 R07. 2 [id number] Basil Martinez DPM Podiatry, [address] [address] 06/25/2017 08:59:25 06/27/2017 08:03:25 Plantar fasciitis 482580430 M72.2 [id number] Basil Martinez DPM Podiatry, [address] [address] 07/17/2017 11:08:16 07/18/2017 11:03:20 Plantar fasciitis 666596149 M72.2 [id number] Basil Martinez DPM Podiatry, [address] [address] 6 09/03/2017 09:07:32 09/03/2017 09:34:03 Plantar fasciitis 342963927 M72.2 [id number] Basil Mratinez DPM Podiatry, [facility] [address] [place] [address] 10/02/2017 14:48:50 10/02/2017 15:12:25 Plantar fasciitis 116322787 M72.2 [id number] Kiera Randolph MD , [facility], [address] [place] [address] 04/06/2018 08:53:56 04/06/2018 09:46:51 Adult health examination 455406566 Z00.00 see Risk Assessment and Lifestyle Change Counseling section above Counseling 496864874 Z71 .9 Depression screening 171 565008 Z13.89 depression screening tool administer ed, entered into emr, scored and discussed, time greater than 7.5 minutes Active or passive immunization 306083994 Z23 Epidermoid cyst of skin 147638888 L72.0 [id number] Basil Martinez DPM Podiatry, [facility] [address] [place] [address] 04/08/2018 09:12:16 04/21/2018 07:05:00 Plantar fasciitis 033738748 M72.2 [id number] Basil Martinez DPM Podiatr, [facility] [address] [place] [address] 04/23/2018 08:51:45 04/28/2018 07:10:22 Pain in right foot 9260089175 [id number] M79.060 [id number] Issa Krishnamurthy MD , [facility], OFF[address] [place] [address] 07/26/2018 10:21:59 07/26/2018 10:47:51 Abdominal pain 18216592 R10.9 [id number] JOSE C Nogueira , [facility], [address] [place] [address] 05/19/2019 08:13:31 05/19/2019 09:06:54 Adult health examination 222365849 Z00.00 Last colonoscop y 2010, normal. Due to repeat in 2020. Counseling 715762033 Z71 .9 Depression screening 171 853689 Z13.89 depression screening tool administer ed, entered into emr, scored and discussed, time greater than 7.5 minutes Active or passive immunization 568839218 Z23 Epidermoid cyst of skin 719743505 L72.3 1 cm sebaceous cyst left mandibular area. Referral to Dr. Clemons for removal. Acid reflux 526568971 K2 1.9 Currently taking Omeprazole 20 mg BID. Discussed risk/benef it of oysterman PPI use and starting slow taper (dropping 1 day or 1/2 day per week, replacing with Famotidine ) if tolerating decrease. Will f/u in 4 mos. [id number] Shaylee Haas, [facility], [facility] [address] [place] [address] 09/21/2019 08:03:56 09/21/2019 09:05:37 Myopia 98506048 H52.13 Meibomian gland dysfunction 628183650 H02.882 pt ed. recommend hot compresses with lid massage 1-2 x per day and Artificial tears 2-4 x per day. Posterior vitreous detachment 533441642 H43.811 longstandi ng, stable. RTC GOLDY if increase in floaters, flashes or any loss of vision. [id number] JOSE C Nogueira , [facility], [address] [place] [address] 12/30/2019 12:17:05 12/31/2019 11:31:04 Infection of skin 632336152 L08.9 Suspect skin on R medial nail fold. Will treat with Keflex 500 mg 1 capsule 4 times per day x 7 days. Advised daily probiotic at least 1 hour apart from abx and soaking finger in warm epsom salt bath 2-4 times per day. Keep area clean and dry and f/u if sxs worsen or persist. [id number] Elizabeth Morillo DO , [facility], [address] [place] [address] 12/31/2019 11:28:36 01/07/2020 15:54:33 Paronychia of finger [id number] L03.019 Pt advised to continue antibiotic s as prescribed yesterday which may need more time- he does have reduced pain which is a sign of some improvemen t. Advised to continue salt water soaks daily and aleve for pain. Pt counseled on possibilit y of lancing the infection if he does not see improvemen t/has worsening of symptoms over the next day or so, and may think of calling urgent care to see if that would be possible to come in for. Pt agrees with plan. [id number] Gerry Roblero MD , [facility], [address] [place] [address] 01/05/2020 08:53:07 01/07/2020 11:30:07 Paronychia of finger [id number] L03.019 the area is still red and tender, the skin is open in areaswill try topical txno systemic s/sx infectiont o soak three times a day then dry and use mupriocin for one week with f/u appt next weekcomple te current course of abx Indigestion [id number] K3 0 shoulder pain on right, some radiation to back, relieved positional lysuspect from indigestio n on abxwill complete coursesimp le diet next two dayscontin ue probioticc all if worse or new sxincrease famotidine to twice a day next two days Acid reflux [id number] K2 1.9 reports not sx with famotidine once a dayalso watches dietfeels he hasn't had indiscreti ons in diet but abx might be exacerbati ng GI sx [id number] Hosea Sanders MD , [facility], [address] [place] [address] 01/14/2020 10:27:23 01/18/2020 11:15:47 Paronychia of finger 170355049 L03.019 Recommend in person visit. TRied Santa yu but they cannot see him today. Will see Ed Woodard in house, discussed case with her [id number] Cruzito Freeman MD , [facility], [address] [place] [address] 01/14/2020 14:22:37 01/18/2020 09:17:48 Paronychia of finger 232312266 L03.019 Appears improved based on history and from recent pictures pt showed me on iphone. Pt has been treated with Keflex, Bactrim, and Bactroban. The erythema is improved and localized and there is no acute fluctuance /bogginess to indicate an abscess. Advised sometimes there may be residual discolorat ion for some time after the infection, but right now I& D is not indicated. Please cont to soak and can apply Bactroban. RTO in 1 week for in person reevaluati on or sooner if needed. Pt understand s and agrees with the plan. [id number] Hosea Sanders MD , [facility], [address] [place] [address] 02/25/2020 07:42:13 02/28/2020 13:54:42 Suspected COVID-19 640509036 Z03.818 covid testing with fatigue, headache and sl chest tightness Active or passive immunization 637971135 Z23 Fatigue 67450301 R53.83 keep diary of temp, symptoms- discussed treating allergies- and if not resolved- question lyme dx [id number] JOSE C Nogueira , [facility], [address] [place] [address] 03/01/2020 09:07:44 03/02/2020 13:46:31 Suspected COVID-19 778576370 Z03.818 Persisting COVID-like sxs since 02/17. Tested negative for COVID on 02/27. Endorsing CURRIE, aches, difficulty taking deep breath, runny nose, sore throat, and occasional cough.Chase es SOB or fever. Discussed high false negative rate of COVID test. Advised patient to continue isolation/ precaution s until 3 days of improved sxs and 3 days of no fever. Advised supportive therapy - tylenol, ibuprofen, adequate hydration, rest, nutrition. Continue daily antihistam ine (in case of allergies) . Discussed lyme vs COVID. Suspect COVID more than lyme d/t respirator y sxs which would not be present with lyme. Encouraged patient to f/u if sxs worsen or change. Patient agreed to plan. [id number] Joana Preciado MD , [facility], [address] [place] [address] 06/05/2020 15:07:26 06/07/2020 16:03:21 Adult health examination 138922268 Z00.00 Last colonoscop y 2010, normal. Due to repeat in 2020.UTD on flu vaccine.Du e now for second Shingrex vaccine. Counseling 641087149 Z71 .9 including cardiovasc ular risk reduction counseling Depression screening 171 971732 Z13.89 depression screening tool administer ed, entered into emr, scored and discussed, time greater than 7.5 minutes Screening for alcohol abuse 660704247 Z13.39 negative Acid reflux 152147047 K2 1.9 Currently taking Famotidine 20 mg BID. Well managed. Allergic r hinitis caused by pollen 39465589 J30.1 Claritin as needed. Lightheadedness 60977508 8 R42 New onset. Exertional . Last for less than 1 minute. Endorses racing heart w/ sxs. Denies chest/arm pain on exertion, SOB, weakness or numbness. Father dx at age 60 with cardiac arrythmia which required med. management . Pt. case to medical receptionist to schedule in house visit for lab work, vitals, and EKG. Patient case to nursing to set pt. up with 30 day monitor. Order sent to [facility] for exercise stress test. Advised pt. to seek urgent care if sxs worsen or occur with SOB, weakness, numbness, or chest pain. Pt. agreed to plan. Low back pain 265671416 M54.5 Improved with nigerien-chi/s trength training. [id number] Candy Mckeon MD , [facility], [address] [place] [address] 06/07/2020 08:31:07 06/08/2020 16:11:06 Lightheadedness 310811837 R42 Seen for in person f/u today after reporting new onset exertional lightheade dness and pounding heartbeat/ rushing to head.EKG NSR (signed by DANTE)Cardiac , lung & neuro exam WNLPositiv e orthostati cs: 127/80 (seated) -> 98/78 (standing) . Pt provided with instructio asuncion on managing.C onfirmed with nursing that holter monitor will be sent to pt's home for 30 days - pt aware.Conf irmed with pt that he is scheduled for stress test with [facility] Cardio, as set up by HAIDER.Reviewelizabeth d red flags and when to seek ED. Peter states understand ing. [id number] Shaylee Haas OD Eye [facility], [facility] [address] [place] [address] 06/14/2021 16:28:04 06/14/2021 17:28:27 Myopia 20119513 H52.13 Meibomian gland dysfunction 986899568 H02.882 pt ed. recommend hot compresses with lid massage 1-2 x per day and Artificial tears 2-4 x per day. Posterior vitreous detachment 124527821 H43.811 longstandi ng, stable. RTC GOLDY if increase in floaters, flashes or any loss of vision. [id number] MD SHARON Arambula, [facility], [address] [place] [address] 08/28/2021 10:43:32 08/30/2021 12:22:20 Adult health examination 869862584 Z00.00 Last colonoscop y 2010, normal. Due now - referral sent today.UTD on flu vaccine.De nies urinary sxs - negative screen for prostate CA Counseling 458060836 Z71 .9 including cardivascu lar risk reduction counseling . Depression screening 171 463748 Z13.31 depression screening tool administer ed, entered into emr, scored and discussed, time greater than 7.5 minutes Screening for alcohol abuse 039465874 Z13.39 negative Screening for malignant neoplasm of colon 163490493 Z12.11 Referral for a DIRECT booked colonoscop y. This patient is a healthy ASA Class 1 or 2 patient (only mild systemic disease), or a STABLE, well controlled insulin dependent diabetic. They do not have serious cardiac disease ie CA/angiopl asty within 1 year, symptomati c CHF; renal failure with CKD 4 or 5; take Coumadin, Plavix, Aggrenox, etc. Active or passive immunization 119960372 Z23 Allergy to food 03126124 1 T78.1XXA Suspected allergies to citrus - intense abdominal pain. Will continue to avoid. Will send referral to allergy. Diarrhea 74648341 R19.7 Diarrhea weekly, typically lasts 1/2-1 day. Family hx of colon CA. Referring for colonoscop y and to consult w/ GI. Skin lesion 70161160 L98 .9 Left hand. DK froze lesion off over 5 yrs ago but has returned as scab. Will return for biopsy. [id number] DO SHARON Herron, [facility], [address] [place] [address] 09/11/2021 08:56:00 09/13/2021 15:53:11 Neoplasm of uncertain behavior of skin of hand 78465813 D48.5 Shave biopsy performed/ LEFT dorsal handWound care instructio ns reviewed.K eep skin dry for 24 hrs, then routine showering ok. Do not soak or swim until full scab has formed. Monitor for signs of redness, pain or streaking which may indicated infection. F/U 10 d for skin check and path review [id number] Hosea Sanders MD , [facility], [address] [place] [address] 04/25/2022 08:25:44 05/01/2022 09:17:54 Pain of left calf 5339777874 615880 M79.662 Ongoing for over 1 mos. Suspect r/t overuse. Will order US and refer to sports medicine. He has met w/ PT before regarding this and is continuing his at home exercises. Advised ibuprofen 600-800 mg 3-4 times per day with food for max of 2 weeks, gentle stretching , Arnica ointment, heat/ice, and massage. Will f/u if sxs worsen. Hemorrhoids 26857422 K64 .9 He is considerin g surgery. Discussed witch belkys wipes, psyllium husk fiber, colace, sitz baths, steroid cream, limiting time on toilet. He has f/u visit w/ GI soon. UTD on colonoscop y. Swelling of lower leg 44 9445905 R22.40 Suspect r/t soft tissue injury and varicose veins. Discussed recommenda tion for elevation and compressio n stockings. He will meet w/ sports medicine. Discussed possibilit y of meeting w/ vein specialist in future as well. Acid reflux 847251421 K2 1.9 Currently taking Famotidine 20 mg daily down from BID. Well managed. Low back pain 933663732 M54.50 Much improved since starting PT. [id number] Gerg Lang MD Sports Medicine, [address] [address] 05/27/2022 09:55:45 05/27/2022 10:39:53 Strain of hamstring tendon 718700861 S76.312A Pain of le ft knee joint 5237442837 67522 M25.562 Betito is a 61-year-ol d male with left knee and calf pain that I believe is due to a tear of his distal semimembra nosus tendon. He has focal discomfort along his distal stem analysis tendon at the insertion of the posterior tibia. He does not have any pain over the pes bursa or evidence of a semitendin osus injury. The knee joint itself appears relatively benign without joint effusion or much joint line pain which I feel makes an internal derangemen t much less likely. I reviewed all this with him today as well as discussing treatment. I have advised conservati ve measures with physical therapy and he was given a referral. I advised he can continue with activities as tolerated which should avoid more intense activities or activities with rapid hamstring movement. I asked if x-rays done of the need to evaluate for any degenerati ve changes potentiall y causing some of his symptoms. He will plan to follow up with me in 10-12 weeks for reevaluati on. [id number] Candy Mckeon MD , [facility], [address] [place] [address] 06/05/2022 15:23:30 06/05/2022 16:44:46 Abdominal pain 66855866 R10.9 Suspicious for constipati on, will check abd. X-ray. X-ray showed Mod. amt of stool in colon Constipation 19430408 K5 9.00 Advised need to take a laxative until stool has cleared. Advised MOM or Miralax-ta ke until no longer passing stool. Increase fluids, fiber, If no results, needs to call back to office. [id number] Cristal juárez, PT Physical Therapy, [facility] [address] [place] [address] 07/02/2022 14:57:36 07/03/2022 23:49:11 Pain of left knee joint 2677738566 58115 M25.867 [id number] Cristal juárez, PT Physical Therapy, [facility] [address] [place] [address] 07/16/2022 15:01:03 07/16/2022 15:45:34 Pain of left knee joint 9162360270 41388 M25.946 [id number] Greg Lang MD Sports Medicine, [facility] [address] [place] [address] 07/30/2022 08:51:32 08/05/2022 21:21:09 Strain of hamstring tendon 726255500 S76.312A Pain of le ft knee joint 7070369602 01302 M25.562 Betito is a 61-year-ol d male with left knee pain that I believe is predominan tly due to a injury of his distal semimembra nosus tendon. This area of discomfort has improved considerab ly and he has returned to running in most activities with minimal symptoms. He is having some more global discomfort which he believes may be related to some mild degenerati ve changes not seen on his x-ray imaging. His exam today is reassuring without joint effusion or evidence of significan t instabilit y or mechanical symptoms. I reviewed all of this with him today as well as discussing further treatment. At this point I have advised continuing his physical therapy and gradually increasing his level of activity. He would like to be able to return to running as well as bike riding. He will plan to follow with me only as needed in the future if he has worsening symptoms. Betito enjoys triathlons and would like to be able to potentiall y bike up [employer] with his daughter later this year. 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 Has worked well in past and uses sparingly. Discussed in future trying non-benzo medication s such as Clonidine or Hydroxyzin e. We agreed to 14 tablets total. Orthostati c hypotension 50958556 I95.1 In care w/ cardiology who suspects this may be more autonomic rather than cardiac. Occurs only when sitting and then stands and goes up stairs. Able to run, cycle, swim without any issues. He has f/u w/ cardiology in 6 mos. Hemorrhoids 17999480 K64 .9 In care w/ GI who currently does not think surgery is warranted at the moment. He will continue with supportive measures: witch belkys wipes, psyllium husk fiber, colace, sitz baths, steroid cream, limiting time on toilet. [id number] Hosea Sanders MD FP, [facility], [address] [place] [address] 12/18/2022 10:51:22 12/18/2022 16:12:46 Adult health examination 326999201 Z00.00 Last colonoscop y 2021, normal, 10 yr recall.UTD on flu vaccine.De nies urinary sxs - negative screen for prostate CA Depression screening 171 539085 Z13.31 depression screening tool administer ed Screening for alcohol abuse 798566195 Z13.39 Alcohol use screening tool administer ed Screening for malignant neoplasm of prostate 876047245 Z12.5 PSA testing for ages 55-69 risks and benefits discussed {{patient declines testing te st ordered pa tient declines testing #}}. Fear of flying 509402574 F40.243 Fear of flying, requesting Lorazepem for flights. Has worked well in past and uses sparingly. Discussed in future trying non-benzo medication s such as Clonidine or Hydroxyzin e. We agreed to 14 tablets total at previous visit. Orthostati c hypotension 10091753 I95.1 In care w/ cardiology who would like patient to have work up for Addidon's Disease and consult w/ neurology to r/o autonomic disease such as Parkinson' s rather than cardiac etiology. Cardiology also recommends pushing electrolyt es and wearing compressio n stockings. Occurs only when sitting and then stands and goes up stairs. Able to run, cycle, swim without any issues. Has f/u w/ cardiology . Will order labs for Marin's and refer to Dr. Dinorah Dior, neurology. We will f/u in 3 mos. Onset of sxs prior to 2019 (COVID). Hemorrhoids 58149286 K64 .9 In care w/ GI who has done the first out of three banding procedures . He is tolerating them well. Swelling of lower leg 44 4117186 R22.40 Suspect r/t soft tissue injury and varicose veins. US last Fall normal and no worsening sxs since then, only improvemen ts since wearing compressio n stockings. left leg 1 cm > right leg today. Discussed recommenda tion for elevation and compressio n stockings. He will meet w/ sports medicine. Discussed possibilit y of meeting w/ vein specialist in future as well. Active or passive immunization 737418286 Z23 Acid reflux 377848294 K2 1.9 Currently taking Famotidine 20 mg daily down from BID. Well managed. [id number] Hosea Sanders MD , [facility], [address] [place] [address] 02/05/2023 15:43:10 02/05/2023 17:59:35 Candidiasis of skin 03695695 B37.2 Assessment and plan:Tinea cruris.Inf ormed the patient that his symptoms are due to a fungal infection called tinea cruris.Pre scribed nystatin cream and instructed him to apply a pea-sized amount to the affected area 2 times a day for 2 weeks.Reas sured the patient that the itching would get better in 3 to 4 days, and the rash will subsequent ly fade out completely .Encourage d him to ensure good air circulatio n to the affected area at nighttime. He can continue using the Gold Contreras powder to help dry the area. This note has been generated by Carly GARZON and edited by Christian Baker Quality Documentat ion Specialist /reviewed by Laurel cadet [id number] Joana Preciado MD , [facility], [address] [place] [address] 02/12/2023 17:06:56 02/12/2023 17:49:45 Tinea cruris 491855613 B35.6 Try new medication instead of nystatin. Can take 1-2 weeks to really see a difference [id number] Hosea Sanders MD , [facility], [address] [place] [address] 12/26/2023 15:23:59 12/29/2023 13:07:37 Adult health examination 556436535 Z00.00 Depression screening 171 352393 Z13.31 depression screening tool administer ed Screening for alcohol abuse 472425897 Z13.39 Alcohol use screening tool administer ed Screening for malignant neoplasm of prostate 675748400 Z12.5 If you have a prostate, the U.S. Preventive Services Task Force advises not to make a PSA test a part of the standard exam for ages 55-69. Instead they recommend the uncertaint ies about the test be discussed and ordered only if a patient still wants it. Over their lifetimes as many as 50% or more of persons with a prostate will develop prostate cancer but only 2% of them will of prostate cancer. For those who chose to be screened for prostate cancer, if 1000 are screened with a psa test over a 15 year period there might be 1-2 deaths prevented however 235 persons will have a biopsy with risk of infection, bleeding and pain, 100 will have their prostate removed by surgery or radiation treatments and 60-70 of those will suffer incontinen ce or impotence. There is also the risk of anesthesia or radiation complicati ons. For those over 70, prostate cancer screening offered no benefit and risked pain, worry, expense and possibly shorter life expectancy . Gastrointe stinal irritation 03962053 K63.89 Discussed FODMAP dietGiven info Follow up in 6 mos Multiple a ctinic keratoses 164954198 L57.0 Very apparent lesions are AKsWill offer cryo tx Epidermoid cyst of skin of back 251516097 L72.0 Initially thought to be blackhead but more consistent w epidermoid cystDiscus sed removal if bothersome [id number] Hosea Sanders MD , [facility], [address] [place] [address] 01/02/2024 16:25:06 01/05/2024 11:29:47 Sciatica 97762966 M54.31 Discussed conservati ve measures vs medication s and returning to PTSince sxs are slowly improving, we opted for conservati ve measures Do sciatica exercisesA void bike riding for a whileGo to PT for sciaticaIf not continuing to improve, consider medication [id number] Shaylee Haas, [facility], [address] [address] 02/05/2024 08:00:43 02/05/2024 09:23:50 Myopia 65016751 H52.13 Vitreous floaters 971044 02 H43.393 longstandi ng and stable. Observe. Ophthalmic examination and evaluation 18448652 Z01.01 [id number] Hosea Sanders MD , [facility], [address] [place] [address] 06/29/2024 16:00:36 06/29/2024 18:59:42 Dilatation of aorta 51871826 I77.819 dilation of aorta to 39mm Low back pain 669667986 M54.50 resolved Orthostati c hypotension 61610117 I95.1 doing wellocc sxs Abdominal discomfort 433 24616 R10.9 Intermitte nt lower abdominal discomfort , mild cramping, and increased gas after bowel movements. Stools are soft but sometimes difficult to pass. No diarrhea or blood in stool. Currently on docusate 200mg daily, EOD MiraLax, and Benefiber. -Continue current medication s.-Trial of gluten-sobia e diet and strict adherence to FODMAP diet recommende d.-If no improvemen t, consider referral to Gastroente rology.-Fo llow up in 6 mos. Erectile dysfunction 860 441126 F52.21 Hard to get and maintain erection Discussed hazards of sildenafil when he has orthostati c hypotensio nAdvised to be very careful with orthostati c changes for 5-8 hours after use Plans for infrequent use Discussed GoodRx Rx very small dose of sildenafil Follow up in 6 mos Actinic keratosis 402777 007 L57.0 HandsDiscu ssed tx options Return for cryo tx if desired Hyperbilirubinemia 47960 006 E80.6 total bili 1.1 in 2022 Diabetes m ellitus screening 952343848 Z13.1 [id number] ANTELMO DAVIS DO , [facility], [address] [place] [address] 09/08/2024 14:50:54 09/09/2024 09:30:29 Low back pain 314770303 M54.50 Chronic low back pain with paraspinal muscle spasms, no radicular symptoms. History of compressio n fracture. Differenti al includes muscle spasms and possible leg length discrepanc y. No cauda equina syndrome. Imaging considered to rule out new changes.- Order lumbar spine X-ray.- Refer to physical therapy for assessment and stretching exercises. - Prescribe muscle relaxant as needed, up to three times daily. Health Concerns Section Related Observation LastModified by Organization Detai ls LastModified Time None Recorded Concern Status LastModified by Organization Details LastModified Time None Recorded Advance Directives Directive N: Payers Encounter Date Sequence Insurance Name Policy Number Policy Ramos Covered Member ID Ramos Member ID Guarantor Name 12/26/2023 1 [facility] [id number] Betito Marrufo [id number] Betito Marrufo 01/02/2024 1 [facility] [id number] Betito Marrufo [id number] Betito Marrufo 02/05/2024 1 [facility] [id number] Betito Marrufo [id number] Betito Marrufo 06/29/2024 [facility] [id number] Betito Marrufo [id number] Betito Marrufo 09/08/2024 [facility] [id number] Betito Marrufo [id number] Betito Marrufo Notes Date Note Type Note Provider Name and Address Organization Details Recorded Time 4 text/html Risk Assessment AdultReported bypatient.Coronary Artery Disease Risk Assesment:No Family history of coronary artery disease; No personal history of diabetes; No history of peripheral vascular disease, AAA, or carotid disease; No personal history of coronary artery disease Breast Cancer Risk Assessment:No family history of breast cancer; No history of breast cancer or dcis Colon Cancer Risk:No personal history of colon cancer or polyps;Family history of colon polyps or canncer Lung Cancer Risk Assessment:Never smoked; No asbestos exposure Fracture Risk Assessment:No unexplained fracture Cognitive/Behavioral Risk Assessment:No personal history of mental illness; No family history of mental illness Safety Risk Assessment:No evidence of abuse/neglect Diet:Counseled about appropriate portion size; Counseled about eating a diet low in trans and saturated fats and high in fiber, fruits and vegetables; Counseled about appropriate calcium intake and good dietary sources of calcium.; Counseled about the importance of maintaining a positive calcium balance and taking 1000 iu Vitamin D daily.; Counseled about decreasing carbohydrates; Counseled about decreasing salt in diet; Discussed the value of a Mediterranean diet, and eating more fruits and vegetables Exercise counseling:Discussed the importance of daily physical activity; Discussed the importance of weight bearing exercise Counselling:Counseled about protecting skin from the sun and lowering the risk of skin cancer; Counseled about avoiding excessive and unsafe alcohol intake; Counseled about use of helmets for high velocity activiities; Counseled about use of seat beltsSocial DeterminantsReported bypatient.Living situationsteady place to live Pt presents for Wellness. GENERAL:Health changes: Hemorrhoids, neurologistExercise: A little less exercise than before. Stretching every morning. Swimming. Getting back to cycling.Diet: Trying more plant based diet. Little meat. Lots of eggs. Whole grains.Alcohol: RareDrugs: NoneSmoking: NeverSex: Sexually active in monogamous relationshipSafety: Safe at homeHearing: No concerns for hearing. Occasional scotoma. Follows w neuro. PREVENTIVEVax: UTDCRC: Negative in 2021. Ten year recall.STIs: No concernsHep C: Negative in 2017Pre DM: FBG 81Lipids: WNL in 3PSA: Declined Had L1 compression fx in Dr Anjum mayaBack pain improved Seeing neuro for orthostatic hypotension Pain after BMs after hemorrhoid bandingBMs in succesion t4Tnacwjieky has improvedFollows w GIContinues to have gut discomfort after BMsTaking fiber, MiralaxIntermittent constipation Has cut out dairy, coffee, some fruitsNo more diarrhea sessions after cutting out dairy KIERA Juárez, [facility] [address] [place], [address], [facility] 12/26/2023 18:41:27 4 text/html Pt c/o persistent Right hip pain. Had L1 compression fx in Dr Spencer pain improvedStill stiff in AMUsing massage gunAlternating standing and sittingDoing home PT exercises Soon after last week started having hip pain and some sharp burning pains in right legPain in sciatic distributionGetting better now in last 24 hoursTightness in the front and in back of right legLess power when propelling self when walkingSitting makes pain worse KIERA Juárez, [facility] [address] [place], [address], [facility] 01/02/2024 18:01:56 4 text/html c/o mild blurry vision at near only with very fine print on medicine bottle without glasses. he takes picture of it and zooms in to see it. reports good distance vision CC.c/o floater, Occasional floater x years, no new ones, no flashes.Takes glasses off for reading and computer. Doesnt like driving at night 2' glare, harder to see. Shaylee Haas, OD [address] [place], [phone], [facility] 02/05/2024 09:15:18 4 text/html Medical mgmt sciatica/back pain-lidocaine patch-hx L1 compression fx in 2022-sciatica visit in december-referred to PT last visit-Went to [facility]-Much improved orthostatic hypotension-follows w cards-last saw in march-was doing well w oh and pushing fluids, using midodrine-cards to do cac score- 9.5ish CAC score-dilation of aorta to 39mm-orthostasis typically when getting up from sitting reflux-tried FODMAP but not totally adherent-Dropped dairy-somewhat better-mild urgency after BM-discomfort at edjjgzkn-colvw-cbzznqqqfy nt cramping occasionally-discomfort primarily after BMs-no diarrhea-stools soft but but can be hard to get out-not pushing much-no burping-after BM flatulence-lots of grains and gluten-docusate, benefiber, miralax EOD-has cut out bananas, citrus erectile dysfunction-hard to get erections-maintaining also difficult-morning but not on demand-infrequent sex KIERA RODRIGUEZ-ANDREWS Juárez, JOSE [address], [phone], [facility] 06/29/2024 17:36:43 5 text/html Back pain 6 wks now. No known injury. Lower back. History of Present IllnessThe patient, with a history of a compression fracture from a bike fall a year ago, presents with two types of back pain. The first is located at the base of the spine on the right side, described as a 'sudden twitchy' pain, likened to sitting on a golf ball. This pain does not radiate down the leg. The second type of pain is muscular, extending from the base of the spine towards the shoulder blades, exacerbated by standing for prolonged periods such as when cooking or doing dishes. This pain is relieved by sitting. The patient denies any recent injury and has been managing the pain with ice and occasional Advil. He has been maintaining an active lifestyle with cycling, swimming, and running, but has stopped running due to the pain. The patient also reports tightness in the right hamstring. 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 He denies any changes in bowel or bladder habits. ANTELMO DAVIS, [address] [place], [phone], [facility] 09/09/2024 08:05:36
[2024-12-01 07:35] VITALS: BP 114/82; PULSE 70; O2SAT 98; BMI 29.6
--- NOTE | 2024-12-01 07:35 | MHC.OFFVIS ---
Vital Signs 12/01/24 07:35 Height 5 ft 11 in Weight 212 lb BMI 29.6 BP 114/82 Blood Pressure Location Rt brachial Position Sitting Pulse 70 Pulse Source Pulse Oximeter Pulse Oximetry (%) 98 Oxygen Delivery Method Room Air Intake Visit Reasons: Follow up Orthostatic HTN/Parkinson Intake Note: Patient presents for follow up orthostatic hypotension Allergies No Known Allergies Allergy (Verified 12/01/24 07:44) Medication List - Last Reconciled 12/01/24 by Dinorah Rodrigues MD docusate sodium (Colace) 100 mg PO DAILY famotidine 20 mg PO DAILY hydrocortisone 1% (Cortisone (hydrocortisone)) 1 appl topical BID PRN lorazepam 0.5 mg PO DAILY PRN midodrine 5 mg PO TID multivitamin 1 tab PO DAILY rosuvastatin 5 mg PO DAILY wheat dextrin (Benefiber Sugar Free (dextrin)) 1.5 grams PO TID HPI Comments Details: 64y/o male comes for follow up of possible parkinsons.He is stable. No episodes of passing out and mild infrequent episodes of dizziness. He is doing well on midodrine 5 mg tid. He stopped dairy, coffee which helped his irritable bowel. His vision is stable .He had 2 more episodes of transient vision loss.No migraines sicne lats visit He stopped gluten and that has helped significantly.He denies nay REM behavior disorder or vivid dreaming History from previous visit- He describes an episode of losing some vision- he was staring at a lock pad with numbers and he could not see some numbers associated with headaches lasting 10 minutes.He has had 3 episodes so far. He has h/o migraines but have been stable for many years. The vision change lasts 10 minutes but headaches can linger for few hrs. He has been having episodes of lightheadedness, palpitations for past 3-4 years.It usually happens when he stands up from a sitting position and goes up the stairs or some sort of exertion. The episodes are infrequent - can have 4-5 times over 3 days in 1 month.He denies headaches with these episodes. He used to have frequent headaches in the past . When he has these episode she feels like he has to stop what he is doing or he will pass out. No episodes of passing out. He sees cardiology- had stress test, Holter, echo etc.He was started on Midodrine 5 mg tid 1 week ago by his it infrastructure consultant. Patient is very active , is a triathlete . He is still able to exercise. He drinks 2 quarts of water,gatorade etc. He also has constipation - for many years. No loss of sense of smell. He has abnormal behavior in sleep- acting out his dreams.He has loud snoring. No drooling, feels his voice is hoarse. No double vision, no vertigo, no change in handwriting.No tremors , no gait issues. [facility] Medical History Migraine Snoring Orthostatic hypotension Reflux esophagitis GERD (gastroesophageal reflux disease) Allergic rhinitis Surgical History S/P ligament repair Family History Father No problems noted. Mother No problems noted. Sister Intestinal adhesions Brother Anxiety Social History Household Members: Spouse Housing: House Alcohol intake: current Patient Tobacco Use Status: Never used Tobacco Physical Exam Vital Signs: Last Vital Signs Pulse 70 12/01/24 07:35 BP 114/82 12/01/24 07:35 Pulse Ox 98 12/01/24 07:35 Oxygen Delivery Method Room Air 12/01/24 07:35 BMI result Body Mass Index 29.6 Const General: cooperative, healthy appearing and comfortable Nutritional Appearance: average body habitus Orientation/consciousness: patient oriented x3 Eyes Pupils: Equal, round and reactive pupils present Neuro Other: Mild decreased facial expression and blink Mild hoarseness of voic e Left UE mild decreased FFM General: patient oriented x3, gait normal, tone normal and moves all extremities Cranial nerves: Yes Facial sensation intact/muscles of mastication intact, Yes Equal, round and reactive pupils present, Yes Bilaterally intact EOM present, Yes Nystagmus not present and Yes Normal facial strength present Cognition (Neuro): normal cognition Gait exam (Neuro): Normal gait present Coordination: fczhaq-xx-ibkj test normal Assessment & Plan Assessment & Plan (1) Orthostatic hypotension: Comment: h/o REM BEHVAIOR DISORDER , constipation ? MSA Code(s): I95.1 - Orthostatic hypotension Category: Medical (2) Migraine: Code(s): G43.909 - Migraine, unspecified, not intractable, without status migrainosus Category: Medical Qualifiers: Migraine type: migraine (< 15 days per month) with aura Intractability: not intractable Plan continue midodrine 5mg tid Increase fluid intake Carotid doppler to evaluate transient vision loss Home sleep test to r/o sleep apnea. suggested magnesium 250-400 mg qhs Orders: Orders US carotid duplex BI Today H53.129 - Transient visual loss, unspecified eye RT home sleep study Today G43.909 - Migraine, unspecified, not intractable, without status migrainosus, R06.83 - Snoring Coding Level of Care Code Est Pt Level 4 (86478) Complex EM visit Add On G2211 Diagnoses Orthostatic hypotension I95.1 Migraine G43.909 Migraine type: migraine (< 15 days per month) with aura Intractability: not intractable
== END 2024-12-01 08:01 | disposition home or self-care (01) ==
LOC: HO.HSMS 07:28
PROVIDERS: PCP Registered Nurse; Visit Provider Psychiatry & Neurology Neurology
DX: I95.1 Orthostatic hypotension (principal); G43.909 Migraine, unspecified, not intractable, without status migrainosus
CPT/HCPCS: 99214

== ENCOUNTER → 2024-12-01 07:27 | Outpatient (BNVA) | payer OTHER, SELFPAY | PROVIDERS: PCP Registered Nurse; Visit Provider Psychiatry & Neurology Neurology | DX: I95.1 Orthostatic hypotension (principal); G43.909 Migraine, unspecified, not intractable, without status migrainosus ==

== ENCOUNTER → 2025-02-17 15:03 | Outpatient (REF) | payer BC, SELFPAY ==
--- OUTSIDE RECORDS SUMMARY | 2025-02-17 15:07 | XMS_ITS | Encounter Summary ---
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 Name Role Phone Ankita Velez MILDRED Primary Care Provider Hosea Sanders MD Primary Care Provider [phone] Hosea Sanders MD Primary Care Provider [phone] Hosea Sanders MD Primary Care Provider [phone] Encounter Details Date Type Department Care Team (Late st Contact Info) Description 06/26/2020 Transcribe Orders [facility] [address] [place] [address] Tri Armas, MAGICIAN/ILLUSIONIST [address] [place], [place] [id number] Social History Tobacco Use Types Packs/Day Years Used Date Smoking Tobacco: Never Smokeless Tobacco: Never Alcohol Use Standard Drinks/Week Comments Yes 1 (1 standard drink = 0.6 oz pur e alcohol) Sex and Gender Information Value Date Recorded Sex Assigned at Male 01/05/2020 5:02 PM EDT Legal Sex Male 9:47 PM EDT Gender Identity Male 01/05/2020 5:02 PM EDT Sexual Orientation Not on file documented as of this encounter Plan of Treatment Upcoming Encounters Date Type Department Care Team (Late st Contact Info) Description 04/19/2025 7:30 AM EDT Office Visit [facility] [address] [place] [address] [address] Floor, [address] [place] [address] Velvet Keller, DNP [address], [address] [place] [address] [email or web address] documented as of this encounter Visit Diagnoses Not on filedocumented in this encounter Care Teams Batch Plant Operator Relationship Specialty Start Date End Date [place] MIL[place] Johnson [address] [place] [phone] [email or web address] PCP - General Family Medicine 01/05/20 06/27/20 Hosea Sanders MD [address] [place] [phone] [email or web address] PCP - General Family Medicine 06/28/20 09/11/21 Hosea Sanders MD [address] [place] [phone] [email or web address] PCP - General Family Medicine 09/12/21 09/27/23 Hosea Sanders MD [address] [place] [phone] [email or web address] PCP - General Family Medicine 09/28/23 documented as of this encounter Additional Source Comments The information contained in this document represents components of the legal health record. It is not the complete legal health record.[facility]
--- OUTSIDE RECORDS SUMMARY | 2025-02-17 15:08 | XMS_ITS | Data Portability ---
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 Gluten-free diet for digestive comfort. Takes multivitamin with vitamin D. - Continue current exercise regimen and gluten-free diet. - Ensure adequate vitamin D intake through multivitamin. [email or web address] Not available 09/09/2024 08:05:16 02/15/2025 02/15/2025 RTC 1 mo HVF 24-2 [email or web address] Not available 02/15/2025 13:44:54 Plan of Treatment Reminders Order Date Submit Date Provider Last Modified By Organization Details Last Modified Time Details Appointments Visual Field 20 min 2024 08:30A M [facility] Visual Coffee Urn Attendant Not available Not available Not available LAB Follow- Up 2025 06:40A M [facility] Lab Not available Not available Not available Kristin s Visit 30 2025 10:30A M XIN ARELLANO Not available Not available Not available Compreh ensive Eye Exam, 20 Min 2025 08:10A M Shaylee Haas, OD Not available Not available Not available Lab lipid panel, serum [address] [facility], [address] [place] [address], [id number], 12/28/2024 10:30:27 BMP, serum or plasma [address] [facility], [address] [place] [address], [id number], 12/28/2024 10:30:27 BMP, serum or plasma 2023 [address]24 [facility], [address] [place] [address], [address], 12/21/2024 16:27:43 bilirub in fractio ns panel, QN, serum or plasma 2023 024 [facility], [address] [place] [address], [address], 12/23/2024 01:22:35 hepatic functio n panel, serum 2023 024 [facility], [address] [place] [address], [id number], 12/21/2024 16:27:44 HbA1c (hemogl obin A1c), blood 2023 024 [facility], [address] [place] [address], [address], 12/21/2024 12:16:14 Referral physica l therapi st referra l 2024 025 [facility], [address], [place], [address], 09/09/2024 07:38:32 Procedures None recorde d. Surgeries None recorde d. Imaging XR, lumbar spine 2024 025 [facility] (Imaging), [address], [place], [address], 09/10/2024 08:48:10 Medication Orders cyclobe nzaprin e 10 mg tablet 2024 025 [email or web address] Jorge Rashaad ([facility]), [address], [place], [phone], 12/28/2024 08:57:51 sildena mark 50 mg tablet 2023 024 DANIA Patel [id number] ([facility]), [address], [place], [phone], 06/29/2024 16:42:56 Patient TargetsNo targets recorded. Patient InstructionsNo instructions recorded. Reason for Referral Physical Therapist Referral for Low back pain LBP with paraspinal hypertonicity. Eval, assist with stretching for Low Back. Referring Physician: Antelmo Davis, Family Medicine, Encounter Date: 09/08/2024 Results Created Date Observation Date Name Description Value Unit Range Abnormal Flag Note LastModifiedBy Organization Detail LastModifiedTime 12/22/1912/21/2024 HGB A1C hemoglobin A1C 5.4 % 4.8-6. 0 Goal: <7% in Patie nts with Diabe zeenat An A1c betwe en 5.7-6 .4% is ident ified as pre-d iabet es and sugge sts risk for progr essio n to diabe zeenat Two a1c value s of 6.5% or highe r is consi stent with a diagn osis of diabe zeenat but may need furth er confi rmati on Not Available [address], [address], 12/21/2024 12:16:14 12/22/1912/21/2024 HGB A1C estimated average glucose 108.3 mg/dL Not Available [address], [address], 12/21/2024 12:16:14 12/22/1912/21/2024 BASIC METAB OLIC PANEL glucose 80 mg/dL 70-100 Not Available [address], [address], 12/21/2024 16:27:43 12/22/1912/21/2024 BASIC METAB OLIC PANEL BUN 13 mg/dL 7-18 Not Available [address], [address], 12/21/2024 16:27:43 12/22/1912/21/2024 BASIC METAB OLIC PANEL creatinine 0.8 mg/dL 0.8-1. 3 Not Available [address], [address], 12/21/2024 16:27:43 12/22/1912/21/2024 BASIC METAB OLIC PANEL B/C 16.3 ratio Not Available [address], [address], 12/21/2024 16:27:43 12/22/1912/21/2024 BASIC METAB OLIC PANEL GFR >=60ML /MIN mL/mi n normal >=60m L/min - Viola l or midly reduc ed <60mL /min- Decre ased kidne y funct ion <15mL /min - Kidne y failu re [facility] calcu lates estim ated Glome rular Filtr ation Rate (eGFR ) using the Chron ic Kidne y Disea se Epide miolo gy Colla borat ion (CKD- EPI) Equat ion (Angeline r et. al 2020) as recom abelardo d by the Natio nal Kidne y Found ation . eGFR is based on age, serum creat inine , and sex. CKD-E PI does not calcu late eGFR by race, does not apply to child bhumi (age <18 years ), and shoul d not be used in pregn debra. Not Available [address], [address], 12/21/2024 16:27:43 12/22/1912/21/2024 BASIC METAB OLIC PANEL sodium 140 mmol/ L 136-14 5 Not Available [address], [address], 12/21/2024 16:27:43 12/22/19 25 12/21/2024 BASIC METAB OLIC PANEL potassium 4.0 mmol/ L 3.5-5. 1 Not Available [address], [address], 12/21/2024 16:27:43 12/22/19 25 12/21/2024 BASIC METAB OLIC PANEL chloride 103 mmol/ L 96-107 Not Available [address], [address], 12/21/2024 16:27:43 12/22/19 25 12/21/2024 BASIC METAB OLIC PANEL anion gap 11.4 5.0-15 .0 Not Available [address], [address], 12/21/2024 16:27:43 12/22/19 25 12/21/2024 BASIC METAB OLIC PANEL CO2 26 mmol/ L 21-32 Not Available [address], [address], 12/21/2024 16:27:43 12/22/19 25 12/21/2024 BASIC METAB OLIC PANEL calcium 9.0 mg/dL 8.5-10 .3 Not Available [address], [address], 12/21/2024 16:27:43 12/22/19 25 12/21/2024 HEPAT IC FUNCT ION PANEL total protein 7.3 g/dL 6.4-8. 2 Not Available [address], [address], 12/21/2024 16:27:44 12/22/19 25 12/21/2024 HEPAT IC FUNCT ION PANEL albumin 4.0 g/dL 3.4-5. 0 Not Available [address], [address], 12/21/2024 16:27:44 12/22/19 25 12/21/2024 HEPAT IC FUNCT ION PANEL globulin 3.3 g/dL Not Available [address], [address], 12/21/2024 16:27:44 12/22/19 25 12/21/2024 HEPAT IC FUNCT ION PANEL A/G 1.2 ratio 0.8-2. 0 Not Available [address], [address], 12/21/2024 16:27:44 12/22/19 25 12/21/2024 HEPAT IC FUNCT ION PANEL total bilirubin 0.80 mg/dL 0.00-1 .00 Not Available [address], [address], 12/21/2024 16:27:44 12/22/19 25 12/21/2024 HEPAT IC FUNCT ION PANEL direct bilirubin 0.20 mg/dL 0.00-0 .30 Not Available [address], [address], 12/21/2024 16:27:44 12/22/19 25 12/21/2024 HEPAT IC FUNCT ION PANEL AST 18 U/L 0-37 Not Available [address], [address], 12/21/2024 16:27:44 12/22/19 25 12/21/2024 HEPAT IC FUNCT ION PANEL ALT 28 U/L 6-63 Not Available [address], [address], 12/21/2024 16:27:44 12/22/19 25 12/21/2024 HEPAT IC FUNCT ION PANEL alk. phos. 106 U/L 50-136 Not Available [address], [address], 12/21/2024 16:27:44 12/22/19 25 12/21/2024 LIPID PANEL cholesterol 152 mg/dL <200 mg/dl Edilson able 200-2 39 mg/dl Borde rline High >240 mg/dl High Not Available [address], [address], 12/21/2024 16:27:45 12/22/1912/21/2024 LIPID PANEL triglyceride s 57 mg/dL <150 mg/dL Viola l 150-1 99 mg/dL Borde rline High 200-4 99 mg/dL High >500 mg/dL Very High Not Available [address], [address], 12/21/2024 16:27:45 12/22/1912/21/2024 LIPID PANEL direct HDL 60 mg/dL <40 mg/dl - Major Risk for CHD >60 mg/dl - Negat jeremy Risk for CHD Not Available [address], [address], 12/21/2024 16:27:45 12/22/1912/21/2024 LDL - CALCU LATED LDL - calculated 81 RISK CATEG ORY LDL GOAL _ CHD or CHD Risk Equiv alent s <100 mg/dl (10-y ear risk >20%) 2+ Risk Facto rs <130 mg/dl (10-y ear risk <= 20%) 0-1 Risk Facto r <160 mg/dl [facility] all peopl e with 0-1 risk facto r have a 10 year risk <10%, thus 10 year risk asses ment in peopl e with 0-1 risk facto r is not neces césar. Not Available [address], [address], 12/21/2024 16:27:46 12/22/19 25 12/23/2024 BILIR UBIN, FRACT IONAT ED bilirubin, total 0.8 mg/dL 0.2-1. 2 normal Not Available [facility] [address] [place], [place], [address], 12/23/2024 01:22:35 12/22/1912/23/2024 BILIR UBIN, FRACT IONAT ED bilirubin, direct 0.2 mg/dL < or = 0.2 normal Not Available [facility] [address] [place], [place], [address], 12/23/2024 01:22:35 12/22/19 25 12/23/2024 BILIR UBIN, FRACT IONAT ED bilirubin, indirect 0.6 mg/dL _(jonathan c) 0.2-1. 2 normal Not Available [facility] [address] [place], [place], [address], 12/23/2024 01:22:35 05/21/20 24 05/21/2024 trans -thor acic echoc ardio gram (TTE) (PROC ) No observ ation record ed. [email or web address] 1 [facility] [address], [place], [address], 05/21/2024 18:57:35 09/10/19 25 09/09/2024 XR, lumba [...] Readin g Physic julia: Shruti Barker ms [facility] (Imaging) [address], [place], [address], 10/13/2024 11:08:33 Result Notes Documentation Provider Name and Address Organization Details Recorded Time Xr, Lumbar Spine : CLINICAL HISTORY: Low back pain, right-sided. TECHNIQUE: AP, lateral and lateral spot views of the lumbar spine obtained. COMPARISON: None. FINDINGS: Vertebral body alignment is within physiologic limits. There is no significant degenerative change. There is a mild superior endplate compression fracture deformity of L1. There is less than 50% loss of height. The sacroiliac joints are unremarkable. IMPRESSION: 1. No significant degenerative change. 2. Mild L1 compression fracture deformity as above. Reading Physician: Santiago DAVIS DO [address] [place] [address], [address] [place] [address] 10/12/2024 20:49:40 Problems Name Problem SNOMED Code Status Onset Date Resolution Date Notes Provider Name and Address Organization Details Recorded Time Muscle, ligament and fascia disorders 165957666 Completed 01/05/2016 Kiera Randolph MD [address] [place] [address], [address] [place] [address] 6 16:30:31 Pain of hip region 36840097 Completed 01/05/2016 Kiera Randolph MD [address] [place] [address], [address] [place] [address] 6 16:30:46 Headache 44695990 Completed 01/05/2016 Kiera Randolph MD [address] [place] [address], [address] 6 16:30:40 Disorder of skin and/or subcutaneo us tissue 40253270 Completed 04/13/2012 Not Available [facility] 3 03:04:39 Knee pain Completed 04/13/2012 Not Available [facility] 3 03:04:39 Open wound of forearm 055921061 Completed 04/13/2012 Not Available [facility] 3 03:04:39 Viral upper respirator y tract infection 147110363 Completed 199904/13/2012 Not Available [facility] 3 03:04:39 Neck pain 70217210 Completed 200004/26/2012 Not Available [facility] 3 03:04:39 Pain of joint 93452440 Completed 200004/13/2012 Not Available [facility] 3 03:04:39 Pain of wrist region 16194089 Completed 200004/13/2012 Not Available [facility] 3 03:04:39 Sprain of shoulder and upper arm Completed 200104/13/2012 Not Available [facility] 3 03:04:39 Plantar fasciitis 656812328 Completed 200204/13/2012 Not Available [facility] 3 03:04:39 Abnormal weight gain 646724322 Completed 200204/13/2012 Not Available [facility] 3 03:04:39 Common cold 51127047 Completed 200204/13/2012 Not Available [facility] 3 03:04:39 Temporoman dibular joint disorder 95557375 Completed 200204/26/2012 Not Available [facility] 3 03:04:39 Acute maxillary sinusitis 70607671 Completed 200204/13/2012 Not Available [facility] 3 03:04:39 Finding by method 464972340 Completed 200304/13/2012 Not Available [facility] 3 03:04:39 Breathing painful 31045426 Completed 200304/13/2012 Not Available [facility] 3 03:04:39 Chest pain 41070051 Completed 200304/13/2012 Not Available [facility] 3 03:04:39 Pain in limb 58823753 Completed 200304/13/2012 Not Available [facility] 3 03:04:39 Precordial pain 25921932 Completed 200304/13/2012 Not Available [facility] 3 03:04:39 Palpitatio ns 56060624 Completed 200304/13/2012 Not Available [facility] 3 03:04:39 Allergic rhinitis caused by pollen 61629237 Active 2004 Not Available [facility] 3 12:05:30 Low back pain 184473404 Active 2004 Not Available [facility] 3 12:05:31 Presbyopia 06740698 Completed 200504/13/2012 Not Available [facility] 3 03:04:39 Astigmatis m 54862196 Completed 200504/13/2012 Not Available [facility] 3 03:04:39 Myopia 56205116 Completed 200504/13/2012 Not Available [facility] 3 03:04:39 Cellulitis and abscess of toe 073536542 Completed 200604/13/2012 Not Available [facility] 3 03:04:39 Disorder of bursa of shoulder region 95772063 Completed 200606/16/2013 Not Available [facility] 3 02:04:09 Pain of shoulder region 89817902 Completed 200704/13/2012 Not Available [facility] 3 03:04:39 Brachial neuritis 94901599 Completed 200706/16/2013 Not Available [facility] 3 02:03:14 Benign essential hypertensi on 7000585 Completed 201504/06/2018 Kiera Randolph MD [address] [place] [address], [address] , [facility] 8 09:17:04 Acid reflux 796929016 Active 2018 Not Available [facility] 3 12:05:31 Orthostati c hypotensio n 01880190 Active 2022 Not Available [facility] 3 12:05:31 Hemorrhoid s 37911682 Active 2022 Not Available [facility] 3 12:05:31 Compressio n fracture of lumbar spine 998884300 Active 2023 L1, September 2022 JOSE C BLACK-[address], [address] , [facility] 4 10:27:37 Dilatation of aorta 41941217 Active 2023 3.9cm oct [address], [address] , [facility] 4 18:57:25 Sciatica 91833443 Active 2023 JOSE C BL[address], [address] , [facility] 4 07:14:12 Actinic keratosis 378729911 Active [address], [address] , [facility] 5 09:30:26 Hyperbilir ubinemia 04674298 Active [address], [address] , [facility] 4 17:34:44 Transient visual loss 28157737 Active 2024 per neuro note November [address], [address] , [facility] 5 05:28:25 Erectile dysfunctio n 641449100 Active [address], [address] , [facility] 5 05:36:27 Abdominal discomfort 17887254 Active 2024 KIERA EDMONDS [address], [address] , [facility] 5 05:36:46 Hyperlipid emia 94502969 Active [address], [address] , [facility] 10:29:49 Problem Notes None recorded. Procedures Surgical History Date Name Laterality Status Provider Name and Address Organization Details Recorded Time 02/16/20 25 Refraction completed Shaylee Haas, OD [address] [place], [address], [facility] 02/15/2025 13:37:01 02/16/20 25 Optical Coherence Tomography (Optic Nerve) completed Shaylee Haas, OD [address] [place], [address], [facility] 02/15/2025 13:37:00 12/29/19 25 Destruction of skin lesion completed KIERA COHN, PLAYERS ASSISTANT-BC [address] [place] [address], [address], [facility] 12/28/2024 10:33:29 02/05/20 24 Refraction completed Shaylee Haas, OD [address] [place] [address], [address], [facility] 02/05/2024 08:54:25 07/16/20 22 [address]: Therapeutic Exercise completed Cristal Benitez, PT [address] [place], [address], [facility] 07/16/2022 15:31:49 07/16/20 22 Treatment and Advice completed Cristal Benitez, PT [address] [place], [address], [facility] 07/16/2022 15:30:22 07/02/20 22 Physical Activity Counselling completed Cristal Benitez, PT [address] [place], [address], [facility] 07/02/2022 17:23:06 07/02/20 22 [address]252: PT Eval Low Complexity completed Cristal Benitez, PT [address] [place], [address], [facility] 07/02/2022 17:23:03 07/02/20 22 Treatment and Advice completed Cristal Benitez, PT [address] [place], [address], [facility] 07/02/2022 17:23:33 09/11/19 22 Shave Biopsy completed Chelly pacheco PA-C [address] [place], [address], [facility] 09/11/2021 09:32:14 06/14/20 21 Refraction completed Sarah Mckeon [facility] 06/08/2021 09:44:15 06/05/20 20 prevention-cardio vascular risk reduction counseling completed Shannonmagnolia Sanders [facility] 06/05/2020 15:16:46 06/05/20 20 prevention-annual alcohol misuse screening completed Shannon Sanders [facility] 06/05/2020 15:16:46 09/21/19 20 Refraction completed Elizabeth Beckman [facility] 09/16/2019 13:08:07 03/28/20 17 Visual field comprehensive completed Nasir Douglas, OD [address] [place], [address], [facility] 03/28/2017 10:22:36 06/28/20 15 Refraction completed Nasir Douglas, OD [address] [place], [address], [facility] 06/28/2015 08:30:06 04/06/20 13 Treatment and Advice completed Cristal Benitez, PT [address] [place], [address], [facility] 04/06/2013 08:04:46 03/11/20 13 Treatment and Advice completed Cristal Benitez, PT [address] [place], [address], [facility] 03/11/2013 10:31:57 11/05/19 12 Wound Care completed Sun Guillermo LPN [facility] 11/05/2011 11:45:56 02/01/20 11 Treatment and Advice completed Cristal Benitez, PT [address] [place], [address], [facility] 01/31/2011 07:34:45 01/11/20 11 Treatment and Advice completed Cristal Benitez, PT [address] [place], [address], [facility] 01/10/2011 08:22:12 12/28/19 11 Treatment and Advice completed Cristal Benitez, PT [address] [place], [address], [facility] 12/27/2010 08:24:11 12/19/19 11 Treatment and Advice completed Cristal Benitez, PT [address] [place], [address], [facility] 12/18/2010 09:07:10 02/21/20 10 Treatment and Advice completed Cristal Benitez, PT [address] [place], [address], [facility] 02/20/2010 08:02:39 01/31/20 10 Treatment and Advice completed Cristal Benitez, PT [address] [place], [address], [facility] 01/30/2010 08:32:52 01/24/20 10 Treatment and Advice completed Cristal Benitez, PT [address] [place], [address], [facility] 01/23/2010 07:28:07 01/16/20 10 Treatment and Advice completed Crsital Benitez, PT [address] [place], [address], [facility] 01/15/2010 08:09:25 01/07/20 09 Treatment and Advice completed Basil Vega, PT [address] [place], [address], [facility] 01/06/2009 09:04:00 12/08/19 09 Treatment and Advice completed Basil Vega, PT [address] [place], [address], [facility] 12/07/2008 08:05:35 Imaging Results None recorded. Procedure Notes None recorded. Medical Equipment None Reported. Allergies Allergen ID Allergen Name Allergen Category Reaction Reaction Severity Criticality Documentation Date Start Date Code Code System Note Provider Name and Address Organization Details Recorded Time 362607 banana extract food,medi cation abdominal pain moderate Not available 05/19/2019 98071 9 [facility] 08:22:12 513987 pineapple extract food abdominal pain moderate Not available 05/19/2019 73760 74 RxNorm Nasima justice [facility] 9 08:22:27 192305 apple extract food abdominal pain moderate Not available 05/19/2019 69900 65 RxNorm red apple s Nasima justice, [facility] 9 08:22:52 Medications Name Sig Start Date [...] Flonase 50 mcg/actua tion nasal spray,sarah pension [place] 1 spray twice a day by [...] TO 12HOURS. ) active Not using 06/29/24 PP, not taking 12/28/24 JRB Not Available Not Available Not Available docusate sodium 100 mg capsule TAKE 2 CAPSULES BY MOUTH EVERY DAY DIRECTED 2024 active Not Available Not Available Not Avai lable omeprazol e 20 mg capsule,d elayed release 1 cap BID 11/16 completed spoke with pt. hong perea Ranitidi ne Recall and states no longer taking omeprazo [...] x 4)/0.5 mL IM syringe PHARMACY ADMINIST GLENDA 08/28 completed Not Available Not Available Not Available Vitals Date Recorded Body height Heart rate Oxygen saturation Oxygen saturation in Arterial blood by Pulse oximetry Systolic And Diastolic Provider Name and Address Organization Details Last Updated DateTime 5 179.07 cm 70 /min 99 % 99 % 90/56 mm[Hg] Bridgette oLbato [facility] 5 15:13:48 Date Recorded Body height Body mass index (BMI) Body weight Heart rate Oxygen saturation Oxygen saturation in Arterial blood by Pulse oximetry Systolic And Diastolic Provider Name and Address Organization Details Last Updated DateTime 5 179.07 cm 29.7 kg/m2 53036.4 g 65 /min 98 % 98 % 88/60 mm[Hg] Jessica Mancini [facility] 5 08:59:31 Date Recorded Body height Body mass index (BMI) Body weight Heart rate Oxygen saturation Oxygen saturation in Arterial blood by Pulse oximetry Systolic And Diastolic Provider Name and Address Organization Details Last Updated DateTime 4 179.07 cm 30 kg/m2 07768.5 8 g 56 /min 98 % 98 % 120/80 mm[Hg] Bridgette Lobato [facility] 4 16:12:41 Social History Question Answer Notes LastModified by Organizat ion Details LastModified Time Tobacco Smoking Status Never Smoker Not Available [facility] 06/13/2011 04:53:18 Do You Have An Advance Directive? No Information not available 06/13/2011 Do You Wear A Helmet When Biking? Yes Information not available 09/09/2014 What Is Your Level Of Caffeine Consumption? Occasional Information not available 06/29/2024 How Much Tobacco Do You Chew? None [email or web address] Information not available 06/13/2011 What Type Of Diet Are You Following? REGULAR Less Meat. No Dairy. Information not available 12/26/2023 Which Illicit Or Recreational Drugs Have You Used? No Information not available 01/05/2020 Have There Been Any Changes To Your Family Or Social Situation? No Information not available 12/18/2022 Are There Any Guns Present In Your Home? No [email or web address] Information not available 06/13/2011 Do You Use Insect Repellent Routinely? Yes Information not available 08/28/2021 Live Alone Or With Others? With Others Information not available 06/05/2020 Have Your Ever Had Any Service? No Information not available 12/28/2024 How Many Times Per Week Do You Exercise For 30+ Minutes? 5+ Times Per Week [email or web address] Information not available 12/28/2024 CSRP - Narcotics No Information not available 09/09/2014 CSRP Contract Signed And Discussed No Information not available 09/09/2014 Patient Has Health Care Proxy Signed And In Chart No Has It Completed, Will Bring It 08/28/21MS [email or web address] Information not available 06/13/2011 CSRP - Stimulants No Information not available 09/09/2014 CSRP - Suboxone No Informati on not available 01/05/2016 Marital Status [email or web address] Information not available 06/13/2011 Mosquito Repellent Used Routinely Yes [email or web address] Information not available 06/13/2011 What Was The Date Of Your Most Recent Tobacco Screening? 12/28/2024 [email or web address] Information not available 12/28/2024 How Many Children Do You Have? 2 [...] Are You Passively Exposed To Smoke? No [facility] Information not available 08/28/2021 How Much Tobacco Do You Smoke? No Information not available 06/29/2015 General Stress Level Low [facility] Information not available 06/05/2020 Do You Use Sunscreen Routinely? Yes [email or web address] Information not available 06/13/2011 How Many Years Have You Smoked Tobacco? 0 [email or web address] Information not available 06/27/2020 How Many Days In The Past Year Have You Consumed 5 Or More Drinks? 0 [facility] Information not available 08/28/2021 Sex: Male Functional Status Question Answer Note LastModified by OrganReebonzat ion Details LastModified Time Do you use any illicit or recreational drugs? No [facility] Information not available 08/28/2021 Do you or have you ever used any other forms of tobacco or nicotine? No [facility] Information not available 08/28/2021 What is your level of alcohol consumption? Occasional 1 drink a week Information not available 08/28/2021 Do you or have you ever used smokeless tobacco? Never used smokeless tobacco Information not available 12/30/2019 Are you currently employed? Yes Information not available 12/18/2022 What is your occupation? Other [email or web address] Information not available 12/24/2024 Do you or have you ever used e-cigarettes or vape? Never used electronic cigarettes [email or web address] Information not available 12/30/2019 What is your exercise level? Moderate daily [...] virus, trivalent, preservative 1 completed Not Available [facility] 08/14/2019 02:18:11 Td(adult) unspecified formulation 6 completed Not Available [facility] 06/12/2011 05:21:29 Influenza, split virus, trivalent, preservative 2 completed Not Available [facility] 08/14/2019 02:18:35 Influenza, split virus, trivalent, PF 3 completed Not Available [facility] 08/14/2019 02:18:57 Influenza, split virus, trivalent, preservative 0 completed Not Available [facility] 08/14/2019 02:35:38 Novel [id number] 0 completed Not Available [facility] 08/14/2019 02:33:03 Influenza, split virus, trivalent, PF 4 completed Not Available [facility] 08/14/2019 02:19:23 Td(adult) unspecified formulation 2 completed KARLI Farfan, [facility] 04/13/2012 15:09:17 Influenza, split virus, quadrivalent, PF 5 completed Not Available [facility] 08/14/2019 02:20:11 Influenza, split virus, quadrivalent, PF 7 completed Not Available [facility] 08/14/2019 02:22:06 Influenza, split virus, quadrivalent, PF 8 completed Not Available [facility] 08/14/2019 02:22:58 Influenza, split virus, quadrivalent, preservative 0 completed Not Available [facility] 05/18/2020 10:39:59 Td (adult), 2 Lf tetanus toxoid, preservative free, adsorbed 2 completed JOSE C Nogueira [address] [place] [address], [id number], [facility] 08/28/2021 11:22:16 zoster recombinant 0 completed KARLI Sosa, [facility] 05/10/2024 09:03:21 COVID-19, mRNA, LNP-S, bivalent, PF, 50 mcg/0.5 mL or 25mcg/0.25 mL dose 3 completed JOSE C Nogueira [address] [place] [address], [phone], [facility] 12/18/2022 20:45:43 Influenza, split virus, trivalent, preservative 0 completed Not Available [facility] 08/14/2019 02:17:48 COVID-19, mRNA, LNP-S, PF, 30 mcg/0.3 mL dose 1 [facility] 11:00:55 COVID-19, mRNA, LNP-S, PF, 30 mcg/0.3 mL dose 1 [facility] 08/28/2021 11:01:18 COVID-19, mRNA, LNP-S, PF, 30 mcg/0.3 mL dose 1 [facility] 08/28/2021 11:01:41 Influenza, split virus, quadrivalent, preservative 1 completed [facility] 08/28/2021 11:02:19 Influenza, split virus, quadrivalent, preservative 2 completed Eliza justice [facility] 04/25/2022 09:24:01 COVID-19, mRNA, LNP-S, PF, 30 mcg/0.3 mL dose 2 completed Eliza justice [facility] 06/03/2022 12:21:39 zoster recombinant 0 completed Kaley Aguilar RN null, [facility] 10/19/2022 11:12:19 zoster recombinant 0 completed Kaley Aguilar RN null, [facility] 10/19/2022 11:12:38 influenza, unspecified formulation 2 completed Kaley Aguilar RN null, [facility] 10/19/2022 11:13:35 COVID-19 mRNA, bivalent, original/Omicron BA.1, Non-US Vaccine (Spikevax Bivalent), Moderna 3 completed KARLI Ash, [facility] 04/28/2023 15:47:20 influenza, unspecified formulation 3 completed Marquita Miranda MA null, [facility] 04/28/2023 15:47:37 Influenza, MDCK, trivalent, preservative 4 completed Celia Woods MA null, [facility] 05/10/2024 09:03:38 Past Encounters Encounter ID Performer Location Encounter Start Date Encounter Closed Date Diagnosis/Indication Diagnosis SNOMED-CT Code Diagnosis ICD10 Code Diagnosis Note [id number] BAIRON Fajardo , [facility], [address] [place] [address] 07/23/2000 11:30:00 08/17/2008 02:02:29 [id number] [facility] [address] [address] 08/28/2000 09:00:00 08/17/2008 02:02:29 [id number] [facility] , [address] [address] 08/28/2000 00:00:00 08/17/2008 02:02:29 [id number] Kiera Randolph MD , [facility], [address] [place] [address] 08/28/2000 08:30:00 08/17/2008 02:02:29 [id number] Ed Crowder. , [facility], [address] [place] [address] 04/06/2002 10:42:44 08/17/2008 02:02:29 [id number] Kiera Randolph MD , [facility], [address] [place] [address] 10/22/2002 10:30:15 08/17/2008 02:02:29 [id number] Cristal juárez, PT Physical Therapy, [address] [place] [address] 11/25/2002 08:14:45 08/17/2008 02:02:29 [id number] Cristal juárez, PT Physical Therapy, [address] [address] 12/03/2002 08:24:41 08/17/2008 02:02:29 [id number] Cristal juárez, PT Physical Therapy, [address] [address] 6 12/10/2002 08:34:11 08/17/2008 02:02:29 [id number] Cristal juárez, PT Physical Therapy, [address] [address] 6 12/14/2002 07:33:10 08/17/2008 02:02:29 [id number] Cristal juárez, PT Physical Therapy, [address] [address] 12/17/2002 09:05:40 08/17/2008 02:02:29 [id number] Cristal juárez, PT Physical Therapy, [address] [address] 12/23/2002 08:44:09 08/17/2008 02:02:29 [id number] MD SHARON Jean Baptiste, [facility], [address] [place] [address] 12/21/2002 16:41:12 08/17/2008 02:02:29 [id number] Cristal juárez, PT Physical Therapy, [address] [address] 12/29/2002 08:41:00 08/17/2008 02:02:29 [id number] [facility] - [address] [address] 12/29/2002 09:17:23 08/17/2008 02:02:29 [id number] Cristal juárez, PT Physical Therapy, [address] [address] 01/05/2003 08:09:54 08/17/2008 02:02:29 [id number] MD SHARON Jean Baptiste, [facility], [address] [place] [address] 02/03/2003 11:44:46 08/17/2008 02:02:29 [id number] Sierra Guallpa NP , [facility], [address] [place] [address] 07/26/2003 15:36:12 07/27/2003 08:20:49 [id number] MD SHARON Jean Baptiste, [facility], [address] [place] [address] 10/03/2003 15:55:24 10/04/2003 08:10:37 [id number] [facility] , [facility] [address] [place] [address] 10/03/2003 16:45:17 10/03/2003 16:47:02 [id number] [facility] , [facility] [address] [place] [address] 10/03/2003 00:00:00 08/17/2008 02:02:29 [id number] Kiera Randolph MD , [facility], [address] [place] [address] 06/08/2004 14:22:09 06/11/2004 14:19:30 [id number] Kiera Randolph MD , [facility], [address] [place] [address] 07/24/2004 12:06:39 07/24/2004 17:19:37 [id number] BAIRON Fajardo , [facility], [address] [place] [address] 11/26/2004 15:34:07 11/27/2004 15:41:29 [id number] [facility] - [facility] [address] [place] [address] 04/10/2005 08:11:32 04/10/2005 08:11:38 [id number] Hosea Sanders MD , [facility], [address] [place] [address] 04/23/2005 16:39:35 08/17/2008 02:02:29 [id number] MD SHARON Jean Baptiste, [facility], [address] [place] [address] 01/06/2006 09:38:35 08/17/2008 02:02:29 [id number] Nohelia Greco OD Eye Care, [facility] [address] [place] [address] 01/06/2006 08:49:28 08/17/2008 02:02:29 [id number] [facility] RAD[facility] [address] [address] 01/06/2006 10:33:16 08/17/2008 02:02:29 [id number] [facility] , [facility], [address] [place] [address] 06/03/2006 16:37:27 06/04/2006 08:14:47 [id number] FP TREATMENT NURSE [facility] FP, [facility], [address] [place] [address] 06/05/2006 10:10:51 06/06/2006 09:02:50 [id number] UCHE Carroll, [facility], [address] [place] [address] 04/10/2007 09:27:05 04/13/2007 16:13:55 [id number] Freya Gregorio NP , [facility], [address] [place] [address] 04/13/2007 10:31:08 04/17/2007 11:22:29 [id number] UCHE Carroll, [facility], [address] [place] [address] 04/21/2007 08:24:40 04/23/2007 11:22:17 [id number] MD SHARON Jean Baptiste, [facility], [address] [place] [address] 07/15/2007 08:43:45 08/17/2008 02:02:29 [id number] Cristal juárez, PT Physical Therapy, [address] [address] 07/29/2007 07:29:11 07/29/2007 12:25:12 [id number] Cristal juárez, PT Physical Therapy, [address] [address] 08/05/2007 07:20:27 08/05/2007 14:07:39 [id number] Nohelia Greco, OD Eye Care, [address] [address] 10/02/2007 07:58:25 10/05/2007 11:58:48 [id number] [facility] - [address] [address] 06/03/2008 15:09:38 06/03/2008 15:09:46 [id number] MD SHARON Jean Baptiste, [facility], [address] [place] [address] 06/03/2008 13:49:34 08/17/2008 02:02:29 [id number] MD SHARON Jean Baptiste, [facility], [address] [place] [address] 11/15/2008 16:26:28 11/17/2008 13:20:48 [id number] Basil Vega , PT Physical Therapy, [address] [address] 11/23/2008 07:27:59 11/24/2008 07:57:00 [id number] Basil Vega PT Physical Therapy, [address] [address] 12/07/2008 07:30:10 12/07/2008 12:16:15 [id number] Basil Vega , PT Physical Therapy, [address] [address] 01/06/2009 08:29:09 01/06/2009 15:13:49 [id number] Baisl Vega PT Physical Therapy, [address] [address] 6 02/08/2009 07:56:16 02/08/2009 11:13:51 [id number] Basil Vega PT Physical Therapy, [address] [address] 03/03/2009 07:35:44 03/03/2009 11:28:24 [id number] [facility], [address] [address] 05/17/2009 07:59:33 05/17/2009 11:15:53 [id number] [facility], [address] [address] 05/22/2009 10:59:30 05/22/2009 11:29:01 [id number] [facility] FP, [facility], [address] [place] [address] 08/08/2009 08:31:35 08/08/2009 15:23:26 [id number] MD SHARON Jean Baptiste, [facility], [address] [place] [address] 01/10/2010 10:42:59 02/06/2010 12:39:43 [id number] Cristal juárez, PT Physical Therapy, [address] [address] 01/15/2010 07:25:33 01/15/2010 10:05:23 [id number] Cristal juárez, PT Physical Therapy, [address] [address] 01/23/2010 07:26:33 01/23/2010 09:37:09 [id number] Cristal juárez, PT Physical Therapy, [address] [address] 01/30/2010 07:50:15 01/30/2010 08:45:06 [id number] Cristal juárez, PT Physical Therapy, [address] [address] 02/20/2010 07:24:26 02/20/2010 08:41:30 [id number] Cristal juárez, PT Physical Therapy, [address] [address] 03/19/2010 07:31:55 03/19/2010 13:43:20 [id number] Kalpana Hubbard NP , [facility], [address] [place] [address] 05/18/2010 14:31:07 05/21/2010 10:36:46 [id number] Kiera Randolph MD , [facility], [address] [place] [address] 12/12/2010 09:32:29 12/14/2010 08:59:18 [id number] Cristal juárez, PT Physical Therapy, [address] [address] 12/18/2010 08:22:48 12/18/2010 10:18:48 [id number] Cristal juárez, PT Physical Therapy, [address] [address] 12/27/2010 07:47:28 12/27/2010 10:10:23 [id number] Cristal Purcell-Sandra z, PT Physical Therapy, [address] [address] 01/10/2011 07:24:25 01/10/2011 08:25:13 [id number] Cristal Emy juárez, PT Physical Therapy, [address] [address] 01/31/2011 07:04:17 01/31/2011 07:46:09 [id number] Cristalnydia juárez, PT Physical Therapy, [address] [address] 02/21/2011 07:04:51 02/21/2011 09:01:50 [id number] Kalpana Hubbard NP FP, [facility], [address] [place] [address] 03/27/2011 08:20:50 03/27/2011 09:24:35 [id number] FP TREATMENT NURSE [facility] FP, [facility], [address] [place] [address] 03/28/2011 09:37:51 03/28/2011 10:24:00 [id number] Akua Santiago PA-C FP, [facility], [address] [place] [address] 07/05/2011 10:14:28 07/05/2011 11:36:03 [id number] [facility] RADIOLOGY [employer] [address] [address] 07/05/2011 11:27:33 07/10/2011 10:11:59 [id number] Kevon Vergara MD , [facility], [address] [place] [address] 08/12/2011 07:54:09 08/12/2011 08:20:47 [id number] MD SHARON Alfaro, [facility], [address] [place] [address] 08/16/2011 16:17:04 08/20/2011 10:47:04 [id number] XIN Torres, [facility], [address] [place] [address] 11/05/2011 10:19:56 11/05/2011 11:33:23 [id number] XIN Torres, [facility], [address] [place] [address] 11/06/2011 10:59:14 11/06/2011 11:39:53 [id number] [facility], [facility], [address] [place] [address] 11/13/2011 08:02:13 11/13/2011 08:28:43 [id number] Sierra De Santiago MD , [facility], [address] [place] [address] 02/17/2012 13:40:01 02/17/2012 14:10:59 [id number] Kiera Randolph MD , [facility], [address] [place] [address] 04/13/2012 14:38:28 04/13/2012 15:36:48 [id number] Kiera Randolph MD , [facility], [address] [place] [address] 07/23/2012 16:22:46 07/24/2012 12:16:16 [id number] Nasir Calderon MD Radiology , [address] [address] 07/23/2012 17:06:58 07/23/2012 17:25:53 [id number] Kiera Randolph MD , [facility], OFFICE [address] [place] [address] 03/03/2013 16:49:42 03/03/2013 17:28:36 [id number] Cristal juárez, PT Physical Therapy, [address] [address] 6 03/11/2013 09:43:45 03/11/2013 11:23:32 Muscle, ligament and fascia disorders [id number] Cristal juárez, PT Physical Therapy, [address] [address] 6 04/06/2013 07:25:41 04/06/2013 09:16:55 Low back pain [id number] Cristal juárez, PT Physical Therapy, [address] [address] 6 04/13/2013 08:54:29 04/13/2013 10:06:22 Low back pain [id number] Kalpana Hubbard NP , [facility], [address] [place] [address] 04/13/2013 09:36:52 04/16/2013 10:25:18 Influenza vaccine [facility] [id number] Cristal juárez, PT Physical Therapy, [address] [address] 6 04/19/2013 07:57:08 04/19/2013 09:51:11 Low back pain [id number] Cristal juárez, PT Physical Therapy, [address] [address] 6 04/29/2013 07:07:17 04/29/2013 09:12:01 Low back pain [id number] Cristal juárez, PT Physical Therapy, [address] [address] 6 05/06/2013 07:28:53 05/06/2013 09:20:00 Low back pain 157329715 [id number] Cristal juárez, PT Physical Therapy, [address] [address] 05/20/2013 07:04:02 05/20/2013 09:47:52 Low back pain [id number] Cristal juárez, PT Physical Therapy, [address] [address] 05/25/2013 07:30:28 05/25/2013 07:48:57 Low back pain [id number] Cristal juárez, PT Physical Therapy, [address] [address] 05/27/2013 07:07:22 05/27/2013 07:47:38 Low back pain [id number] Cristal juárez, PT Physical Therapy, [address] [address] 06/01/2013 07:25:26 06/01/2013 09:47:15 Low back pain [id number] Kiera Randolph MD , [facility], OFFICE [address] [place] [address] 07/01/2013 11:46:41 07/01/2013 13:09:39 Pain of hip region 54306026 [id number] UCHE De La Cruz, [facility], [address] [place] [address] 07/02/2014 11:43:55 07/02/2014 11:48:38 Influenza vaccine needed [id number] 018 [id number] Kiera Randolph MD , [facility], [address] [place] [address] 09/09/2014 13:39:17 09/09/2014 14:15:23 Sprain of jaw 83824299 Strain of gastrocnemius tendon 930820566 [id number] BAIRON Dominguez , [facility], [address] [place] [address] 02/11/2015 10:14:19 02/11/2015 11:03:59 Pruritus ani 72676238 Rash of genitalia 130003742 fungal- clotriamzo le 3x/day- f/u if not resolving I coming week [id number] Kiera Randolph MD , [facility], [address] [place] [address] 02/20/2015 16:36:39 02/20/2015 17:16:48 Infection of sebaceous cyst 970313619 [id number] Nasir Douglas, OD Eye Care, [facility] [address] [place] [address] 06/28/2015 07:47:54 06/28/2015 08:32:24 Myopia 42324487 H52.13 Presbyopia 73508053 H52. 4 Headache 64776628 R51 Most likelynot eye related. Optic nerves appear flat and healthy [id number] Kalpana Hubbard NP , [facility], [address] [place] [address] 06/28/2015 08:31:31 06/28/2015 09:30:35 Active or passive immunization 130856484 Z23 [id number] Kiera Randolph MD , [facility], [address] [place] [address] 06/29/2015 16:35:35 06/29/2015 17:28:29 Neck pain 75098692 M54.2 [id number] Kiera Randolph MD , [facility], [address] [place] [address] 01/05/2016 15:56:55 01/08/2016 09:13:57 Adult health examination 028495367 Z00.00 see Risk Assessment and Lifestyle Change Counseling section above Counseling 216737997 Z71 .9 [id number] Kiera Randolph MD , [facility], [address] [place] [address] 11/22/2016 08:21:04 11/22/2016 14:19:47 Adult health examination 918308110 Z00.00 see Risk Assessment and Lifestyle Change Counseling section above Headache 32255384 R51 [id number] Nasir Douglas, OD Eye Care, [facility] [address] [place] [address] 02/28/2017 14:18:17 02/28/2017 15:15:16 Posterior vitreous detachment 243226645 H43.811 Retina is intact 360 degrees [id number] Nasir Douglas, OD Eye Care, [facility] [address] [place] [address] 03/21/2017 08:01:34 03/21/2017 09:03:47 Vitreous floaters 57651232 H43.391 Retina intact 360 degrees Subjective visual disturbance 40473091 H53.10 OCT show normal macula in both eyes. No evidence of CSRWith history of headaches will get visual field to rule out neurologic al defect Central se bonnie chorioretinopathy 535533188 H35.711 Ruled out by OCT. [id number] Nasir Douglas, OD Eye Care, [facility] [address] [place] [address] 03/28/2017 09:49:36 03/28/2017 10:43:04 Myopia 74189524 H52.13 Visual disturbance 76330 001 H53.9 Normal visual box in each eye, normal fundus, normal MRI Presbyopia 62307226 H52. 4 [id number] Gerry Roblero MD , [facility], [address] [place] [address] 05/24/2017 11:27:03 05/24/2017 13:29:15 Active or passive immunization 159139728 Z23 [id number] Cruzito Freeman MD , [facility], [address] [place] [address] 06/02/2017 17:07:19 06/03/2017 08:37:45 Plantar heel pain 51845873 M79.672 medial aspect pain.persi stent, pending negative x-ray will refer to PT and podiatry. [id number] Kiera Randolph MD , [facility], [address] [place] [address] 06/23/2017 16:26:20 06/24/2017 07:47:37 Headache 99306965 R51 Chest pain 13203067 R07. 2 [id number] Basil Martinez DPM Podiatry, [facility] [address] [place] [address] 06/25/2017 08:59:25 06/27/2017 08:03:25 Plantar fasciitis 886319544 M72.2 [id number] Basil Martinez DPM Podiatry, [facility] [address] [place] [address] 07/17/2017 11:08:16 07/18/2017 11:03:20 Plantar fasciitis 197949866 M72.2 [id number] Basil Martinez DPM Podiatry, [facility] [address] [place] [address] 09/03/2017 09:07:32 09/03/2017 09:34:03 Plantar fasciitis 132032487 M72.2 [id number] Basil Martinez DPM Podiatry, [address] [address] 10/02/2017 14:48:50 10/02/2017 15:12:25 Plantar fasciitis 721425087 M72.2 [id number] Kiera Randolph MD , [facility], [address] [place] [address] 04/06/2018 08:53:56 04/06/2018 09:46:51 Adult health examination 701715838 Z00.00 see Risk Assessment and Lifestyle Change Counseling section above Counseling 860940741 Z71 .9 Depression screening 171 456315 Z13.89 depression screening tool administer ed, entered into emr, scored and discussed, time greater than 7.5 minutes Active or passive immunization 726588585 Z23 Epidermoid cyst of skin 260350704 L72.0 [id number] Basil Martinez DPM Podiatry, [facility] [address] [place] [address] 04/08/2018 09:12:16 04/21/2018 07:05:00 Plantar fasciitis 779112821 M72.2 [id number] Basil Martinez DPM Podkaylee, [facility] [address] [place] [address] 04/23/2018 08:51:45 04/28/2018 07:10:22 Pain in right foot 9545523784 14947 M79.942 [id number] Issa Krishnamurthy MD , [facility], [address] [place] [address] 07/26/2018 10:21:59 07/26/2018 10:47:51 Abdominal pain 50463943 R10.9 [id number] JOSE C Nogueira , [facility], [address] [place] [address] 05/19/2019 08:13:31 05/19/2019 09:06:54 Adult health examination 493761441 Z00.00 Last colonoscop y 2010, normal. Due to repeat in 2020. Counseling 710366992 Z71 .9 Depression screening 171 926581 Z13.89 depression screening tool administer ed, entered into emr, scored and discussed, time greater than 7.5 minutes Active or passive immunization 600330343 Z23 Epidermoid cyst of skin 105569453 L72.3 1 cm sebaceous cyst left mandibular area. Referral to Dr. Clemons for removal. Acid reflux 087365988 K2 1.9 Currently taking Omeprazole 20 mg BID. Discussed risk/benef it of correction PPI use and starting slow taper (dropping 1 day or 1/2 day per week, replacing with Famotidine ) if tolerating decrease. Will f/u in 4 mos. [id number] Shaylee Haas, OD [facility], [facility] [address] [place] [address] 09/21/2019 08:03:56 09/21/2019 09:05:37 Myopia [id number] H52.13 Meibomian gland dysfunction [id number] H02.882 pt ed. recommend hot compresses with lid massage 1-2 x per day and Artificial tears 2-4 x per day. Posterior vitreous detachment [id number] H43.811 longaidee ng, stable. RTC GOLDY if increase in floaters, flashes or any loss of vision. [id number] JOSE C Nogueira , [facility], OFF[address] [place] [address] 12/30/2019 12:17:05 12/31/2019 11:31:04 Infection of skin [id number] L08.9 Suspect skin on R medial nail fold. Will treat with Keflex 500 mg 1 capsule 4 times per day x 7 days. Advised daily probiotic at least 1 hour apart from abx and soaking finger in warm epsom salt bath 2-4 times per day. Keep area clean and dry and f/u if sxs worsen or persist. [id number] Elizabeth Morillo DO , [facility], [address] [place] [address] 12/31/2019 11:28:36 01/07/2020 15:54:33 Paronychia of finger [id number] L03.019 Pt advised to continue antibiotic s [...] come in for. Pt agrees with plan. [id number] Gerry Roblero MD , [facility], [address] [place] [address] 01/05/2020 08:53:07 01/07/2020 11:30:07 Paronychia of finger [id number] L03.019 the area is still red and tender, the skin is open in areaswill try topical txno systemic s/sx infectiont o soak three times a day then dry and use mupriocin for one week with f/u appt next weekcomple te current course of abx Indigestion 033663071 K3 0 shoulder pain on right, some radiation to back, relieved positional lysuspect from indigestio n on abxwill complete coursesimp le diet next two dayscontin ue probioticc all if worse or new sxincrease famotidine to twice a day next two days Acid reflux 147863548 K2 1.9 reports not sx with famotidine once a dayalso watches dietfeels he hasn't had indiscreti ons in diet but abx might be exacerbati ng GI sx [id number] Hosea Sandesr MD , [facility], [address] [place] [address] 01/14/2020 10:27:23 01/18/2020 11:15:47 Paronychia of finger 059109345 L03.019 Recommend in person visit. [facility] but they cannot see him today. Will see Ed Woodard in house, discussed case with her [id number] Cruzito Freeman MD , [facility], [address] [place] [address] 01/14/2020 14:22:37 01/18/2020 09:17:48 Paronychia of finger 034387537 L03.019 Appears improved based on history and [...] understand s and agrees with the plan. [id number] Hosea Sanders MD , [facility], [address] [place] [address] 02/25/2020 07:42:13 02/28/2020 13:54:42 Suspected COVID-19 833316093 Z03.818 covid testing with fatigue, headache and sl chest tightness Active or passive immunization 106335994 Z23 Fatigue 97852831 R53.83 keep diary of temp, symptoms- discussed treating allergies- and if not resolved- question lyme dx [id number] JOSE C Nogueira , [facility], [address] [place] [address] 03/01/2020 09:07:44 03/02/2020 13:46:31 Suspected COVID-19 608898614 Z03.818 Persisting COVID-like sxs since 02/17. Tested [...] worsen or change. Patient agreed to plan. [id number] Joana Preciado MD , [facility], [address] [place] [address] 06/05/2020 15:07:26 06/07/2020 16:03:21 Adult health examination 906702514 Z00.00 Last colonoscop y 2010, normal. Due to repeat in 2020.UTD on flu vaccine.Du e now for second Shingrex vaccine. Counseling 703481463 Z71 .9 including cardiovasc ular risk reduction counseling Depression screening 171 172230 Z13.89 depression screening tool administer ed, entered into emr, scored and discussed, time greater than 7.5 minutes Screening for alcohol abuse 538964679 Z13.39 negative Acid reflux 498452323 K2 1.9 Currently taking Famotidine 20 mg BID. Well managed. Allergic r hinitis caused by pollen 83872572 J30.1 Claritin as needed. Lightheadedness 73383767 8 R42 New onset. Exertional . Last for less than 1 minute. Endorses racing heart w/ sxs. Denies chest/arm pain on exertion, SOB, weakness or numbness. Father dx at age 60 with cardiac arrythmia which required med. management . Pt. case to entry level receptionist to schedule in house visit for lab work, vitals, and EKG. Patient case to nursing to set pt. up with 30 day monitor. Order sent to [facility] for exercise stress test. Advised pt. to seek urgent care if sxs worsen or occur with SOB, weakness, numbness, or chest pain. Pt. agreed to plan. Low back pain 440989525 M54.5 Improved with leroy-chi/s trength training. [id number] Candy Mckeon MD , [facility], [address] [place] [address] 06/07/2020 08:31:07 06/08/2020 16:11:06 Lightheadedness 144489077 R42 Seen for in person f/u today after reporting new onset exertional lightheade dness and pounding heartbeat/ rushing to head.EKG NSR (signed by DANTE)Cardiac , lung & neuro exam WNLPositiv e orthostati cs: 127/80 (seated) -> 98/78 (standing) . Pt provided with batool roland on managing.C onfirmed with nursing that holter monitor will be sent to pt's home for 30 days - pt aware.Conf irmed with pt that he is scheduled for stress test with [facility] Cardio, as set up by NB.Reviewe d red flags and when to seek ED. Peter states understand ing. [id number] Shaylee Haas, OD [facility], [address] [address] 06/14/2021 16:28:04 06/14/2021 17:28:27 Myopia 77142942 H52.13 Meibomian gland dysfunction 160669365 H02.882 pt ed. recommend hot compresses with lid massage 1-2 x per day and Artificial tears 2-4 x per day. Posterior vitreous detachment 629248879 H43.811 longstandi ng, stable. RTC GOLDY if increase in floaters, flashes or any loss of vision. [id number] Hosea Sanders MD , [facility], [address] [place] [address] 08/28/2021 10:43:32 08/30/2021 12:22:20 Adult health examination 906437549 Z00.00 Last colonoscop y 2010, normal. Due now - referral sent today.UTD on flu vaccine.De nies urinary sxs - negative screen for prostate CA Counseling 263878128 Z71 .9 including cardivascu lar risk reduction counseling . Depression screening 171 149086 Z13.31 depression screening tool administer ed, entered into emr, scored and discussed, time greater than 7.5 minutes Screening for alcohol abuse 355343351 Z13.39 negative Screening for malignant neoplasm of colon 548636946 Z12.11 Referral for a DIRECT booked colonoscop y. This patient is a healthy ASA Class 1 or 2 patient (only mild systemic disease), or a STABLE, well controlled insulin dependent diabetic. They do not have serious cardiac disease ie AZ/angiopl asty within 1 year, symptomati c CHF; renal failure with CKD 4 or 5; take Coumadin, Plavix, Aggrenox, etc. Active or passive immunization 111492467 Z23 Allergy to food 61966508 1 T78.1XXA Suspected allergies to citrus - intense abdominal pain. Will continue to avoid. Will send referral to allergy. Diarrhea 87034458 R19.7 Diarrhea weekly, typically lasts 1/2-1 day. Family hx of colon CA. Referring for colonoscop y and to consult w/ GI. Skin lesion 24118881 L98 .9 Left hand. DK froze lesion off over 5 yrs ago but has returned as scab. Will return for biopsy. [id number] Elizabeth Morillo DO , [facility], [address] [place] [address] 09/11/2021 08:56:00 09/13/2021 15:53:11 Neoplasm of uncertain behavior of skin of hand 87993679 D48.5 Shave biopsy performed/ LEFT dorsal handWound care instructio ns reviewed.K eep skin dry for 24 hrs, then routine showering ok.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
== END ==
LOC: HO.SL 15:03
PROVIDERS: PCP Registered Nurse; Visit Provider Psychiatry & Neurology Neurology
DX: R06.83 Snoring (principal); G43.909 Migraine, unspecified, not intractable, without status migrainosus
CPT/HCPCS: 95806

== ENCOUNTER → 2025-02-17 15:16 | Outpatient (BNV) | payer BC, SELFPAY | PROVIDERS: PCP Registered Nurse; Visit Provider Psychiatry & Neurology Neurology | DX: R06.83 Snoring (principal) | CPT/HCPCS: 95806 ==